=== PATIENT | male | born 1960 | race Caucasian/White ===

== ENCOUNTER 2019-08-13 14:54 | Outpatient (CLI) | payer OTHER, SELFPAY ==
[2019-08-13 16:05] LABS: Alanine Aminotransferase 25 U/L (4-50); Albumin Level 4.6 g/dL (3.5-5.1); Alkaline Phosphatase 83 U/L (38-126); Aspartate Amino Transferase 27 U/L (17-59); Bilirubin,Total 0.5 mg/dL (0.2-1.3); Blood Urea Nitrogen 24 mg/dL (9-20); Carbon Dioxide 27 mmol/L (22-30); Chloride 101 mmol/L (98-107); Estimated Glomerular Filt Rate > 60; Glucose 121 mg/dL (75-110); Potassium 4.2 mmol/L (3.4-5.0); Sodium 137 mmol/L (137-145); Uric Acid 3.9 mg/dL (3.5-8.5)
== END 2019-08-13 14:55 | disposition home or self-care (01) ==
PROVIDERS: Visit Provider Podiatrist Foot & Ankle Surgery
DX: M10.9 Gout, unspecified (principal)
CPT/HCPCS: 36415; 80053; 84550

== ENCOUNTER 2020-08-18 11:23 | Outpatient (CLI) | payer OTHER, SELFPAY ==
--- NOTE | 2020-08-18 11:32 | ECG_ITS ---
Measurements Intervals [place] Rate: 94 P: 37 MA: 179 QRS: 265 QRSD: 157 T: -11 QT: 369 QTc: 461 Interpretive Statements SINUS RHYTHM RIGHT AXIS DEVIATION RIGHT BUNDLE BRANCH BLOCK BASELINE ARTIFACT- I, II, AVR, AVL, AVF ABNORMAL ECG Electronically Signed On 08-18-2020 11:50:32 [facility] by Serge Crow D.O.
[2020-08-18 12:02] LABS: Anion Gap 7 mmol/L (8-16); Blood Urea Nitrogen 18 mg/dL (9-20); Calcium 9.2 mg/dL (8.4-10.2); Carbon Dioxide 29 mmol/L (22-30); Chloride 106 mmol/L (98-107); Estimated Glomerular Filt Rate > 60; Glucose 176 mg/dL (75-110); Potassium 4.4 mmol/L (3.4-5.0); Sodium 142 mmol/L (137-145)
== END 2020-08-18 11:24 | disposition home or self-care (01) ==
PROVIDERS: Anesthesiology; PCP Family Medicine; Visit Provider Podiatrist Foot & Ankle Surgery
DX: I10 Essential (primary) hypertension (principal); Z01.818 Encounter for other preprocedural examination; I45.10 Unspecified right bundle-branch block
CPT/HCPCS: 36415; 80048; 93005

== ENCOUNTER → 2020-08-22 02:38 | Outpatient (CLI) | payer OTHER, SELFPAY ==
[2020-08-22 22:46] LABS: SARS-CoV-2 RNA PCR Negative
== END ==
PROVIDERS: PCP Family Medicine; Visit Provider Podiatrist Foot & Ankle Surgery
DX: Z01.812 Encounter for preprocedural laboratory examination (principal); Z20.822 Contact with and (suspected) exposure to COVID-19
CPT/HCPCS: C9803; U0003; U0005

== ENCOUNTER 2020-08-25 00:52 | Day surgery (SDC) | payer OTHER, SELFPAY ==
[2020-08-17 14:23] VITALS: BMI 31.2
--- NOTE | ~2020-08-25 | XR_ITS ---
EXAMINATION: XR surgery orthopedic EXAM DATE: 08/25/2020 09:44 INDICATION: 5th metatarsal head resection left foot. TECHNIQUE: Fluoroscopy used during XR surgery orthopedic performed by Dr. Ángel Galvan JR MD. The DAP for this procedure was 0.0326 cGycm2. FINDINGS: Single image demonstrates surgical defect, osteotomy resection of the 5th metatarsal head. No side marker on the image. Correlate with procedure note. IMPRESSION: Fluoroscopy used during XR surgery orthopedic. Reviewed, dictated and finalized at location B. FRAMER
--- NOTE | 2020-08-25 07:10 | WPDHPUPDATE1 ---
History and Physical Update Update Date/Time: 08/25/20 07:10 History and Physical has been reviewed, including an updated exam of the patient. There are NO changes in the patient's condition. Risks, benefits, and alternatives have been discussed and questions answered. Patient agrees to proceed with procedure.
--- NOTE | 2020-08-25 08:05 | WPDANESEPPF ---
Anes - Initial Pre Proc Eval Procedure: Operation Date: 08/25/20 09:30 Proposed Procedures p Fifth Metatarsal Head Resection Left Foot - Ángel Galvan JR, MD Date/Time: 08/25/20 08:05 Surgeon: Ángel Galvan JR, MD Pre Op Diagnosis: tailor's bunion left foot Patient Data Age: 59 Gender: M Height: 6 ft 3 in Weight: 113.5 kg Allergies Allergy/AdvReac Type Severity Reaction Status Date / Time ciprofloxacin Allergy Severe Other Verified 08/21/20 09:08 hydrocodone AdvReac Unknown Hyperactive Verified 08/21/20 09:08 & jittery Home Medications Medication Instructions Recorded Confirmed Type metformin 500 mg tablet,extended 1,000 mg PO DAILY #180 tablet 02/11/20 08/25/20 Rx release 24hr duloxetine 60 mg capsule,delayed 60 mg PO DAILY #30 cap 02/16/20 08/25/20 Rx release dexlansoprazole 60 mg 60 mg PO DAILY #90 cap 03/13/20 08/25/20 Rx capsule,biphase delayed release blood sugar diagnostic #120 ea 04/27/20 06/22/20 Rx lisinopril 20 mg tablet 20 mg PO DAILY #90 tablet 05/03/20 08/25/20 Rx dapagliflozin 10 mg tablet 10 mg PO DAILY #90 tablet 05/05/20 08/25/20 Rx blood-glucose meter #1 ea 05/19/20 06/22/20 Rx ropinirole 1 mg tablet 2 mg PO .qhs #180 tablet 05/19/20 08/25/20 Rx blood sugar diagnostic #300 ea 06/01/20 06/22/20 Rx lancets #200 ea 06/01/20 06/22/20 Rx rosuvastatin 40 mg tablet 40 mg PO DAILY #90 tablet 06/28/20 08/25/20 Rx trazodone 100 mg PO ONCE PRN 08/17/20 08/25/20 History Patient hx anesthesia problems: none Family hx anesthesia problems: none PMFSH Past Medical History Medical History BMI 31.0-31.9,adult Chronic neck pain Depression with anxiety Essential hypertension GERD (gastroesophageal reflux disease) Hyperlipidemia PAULINO on CPAP Restless leg Tobacco abuse Type 2 diabetes mellitus without complication, with salvage determiner current use of insulin pump Family History Family History Father No problems noted. Mother No problems noted. Sibling defect Other Cerebrovascular accident Diabetes mellitus Family history of coronary artery disease Hypertension Social History Social History Smoking packs per day: 2 Smoking cigarettes per day: 40.0 Years smoked: 45 Smoking pack-years: 90.00 Tobacco type: cigarettes Alcohol intake: current Spiritual care concerns: No Anes - Eval Final PreProcedure Day of Procedure 08/25/20 08:05 Patient weight: obese Heart: regular rate and rhythm Lungs: decreased breath sounds Airway: Mallampati scale class II Neurological: alert and oriented Last oral intake: >/= 8 hours ASA classification: III Emergent: no Anesthetic plan: proceed Anesthesia type and monitoring: general GIVS and standard monitoring Informed Consent: The patient's anesthetic plan and its attendant risks and benefits were discussed with the patient/family/POA. Questions were solicited and answers provided to the satisfaction of the patient/family/POA.
[2020-08-25 08:09] LABS: Glucose Point of Care 175 (65-105)
[2020-08-25] MEDS: LACTATED RINGERS 1,000 ML 30 ML IV CONT (08:10)
[2020-08-25 08:39] VITALS: BP 130/80; PULSE 95; RESP 20; TEMP 36.5; O2SAT 98
[2020-08-25] MEDS: ceFAZolin 2 GM/D5W 50 ML 2 GM/50 ML BAG IVPB (09:10)
[2020-08-25] MEDS: BUPIVACAINE HCL 0.5% PF 30 ML VIAL INFILTRATE (09:18)
[2020-08-25] MEDS: LIDOCAINE HCL 2% PF INJ 5 ML VIAL 20 ML INFILTRATE (09:46)
--- NOTE | 2020-08-25 09:49 | PM.PROC ---
Procedure Note - Detailed Date of procedure: 08/25/20 Pre-op diagnosis: tailor's bunion left foot Post-op diagnosis: same Procedure performed: Fifth metatarsal head resection left foot Anesthesia: GLMA and local Surgeon: Ángel Galvan JR, DPM Estimated blood loss (mL): 1 Drains: No Packing: No Pathology: none sent Complications: No immediate complications Condition: stable Disposition: same day Findings: Attention was directed to the dorsal lateral aspect of the fifth metatarsal head where a 2 cm incision was made just lateral to the extensor digitorum longus tendon to the fifth digit to the shaft of the fifth metatarsal. The incision was continued deep down through the subcutaneous tissues using sharp and blunt dissection. All bleeders were cauterized as necessary.A full-length periosteal incision was made overlying the fifth metatarsal distally. A McGlamry Elevator was used to free the plantar structures to the fifth metatarsal head. Next, a sagittal bone saw was used to resect the head of the fifth metatarsal proximal at the neck of the 5th metatarsal. The fifth metatarsal was removed from the operative site and placed on the back table and discarded. No abnormalities to the head of the fifth metatarsal. Fluoroscopy was used to make sure that the resected distal fifth metatarsal was adequate. The edges were smoothed out with a bone rasp. Next, the periosteum and capsular structures overlying the 5th metatarsophalangeal joints were reapproximated with 4-0 Vicryl. Next, subcutaneous structures were reapproximated and coapted utilizing 4-0 Vicryl. Next, the skin was reapproximated and coapted utilizing 4-0 Monocryl in running subcuticular suture fashion technique. Upon completion of the procedure, the incision was dressed with Adaptic, 4 x 4's, Kerlix, and Coban. The pneumatic ankle tourniquet was then deflated and a prompt hyperemic response noted to all digits of the foot. A CAM walker boot was then applied. The patient did very well with the procedure and the anesthesia. The patient was transferred to the recovery room with vital signs stable and vascular status intact to all toes of the affected foot. Following a period of postoperative monitoring, the patient will be discharged home on the following written and oral postoperative instructions: 1. Keep the dressing clean, dry, and intact. Use a cast protector bag with showers. 2. The patient should use a CAM boot for ambulation postoperatively. 3. The patient should be on bedrest with bathroom privileges and elevate the affected foot when at rest. 4. The patient to contact Dr. Galvan for all postop care and if any problems arise. 5. Prescriptions were written for Percocet 5/325 dispensed 40 to be taken 1 p.o. q.4 to 6 hours as needed for severe pain. 6. Take one Aspirin 325mg every 24hours for two weeks post operatively.
[2020-08-25 10:00] VITALS: BP 118/89; PULSE 85; RESP 16; TEMP 36.3; O2SAT 100
[2020-08-25 10:13] LABS: Glucose Point of Care 143 (65-105)
[2020-08-25 10:30] VITALS: BP 131/85; PULSE 79; RESP 20; O2SAT 97
--- NOTE | 2020-08-25 10:39 | SUR.PHASEII ---
PT AWAKE AND ALERT. ASKING TO GO HOME. DENIES PAIN
[2020-08-25 11:00] VITALS: BP 140/90; PULSE 79; RESP 18
--- NOTE | 2020-08-25 16:25 | SUR.PHASEII ---
1045; ATTEMPTED TO PUT CAM BOOT ON. VELCRO WILL NOT GO AROUND FRONT OF FOOT DO TO DRESSING. TOES AT END OF BOOT. CALLED DR HAILE OFFICE. WILL GET A LARGER BOOT
--- NOTE | 2020-08-25 16:32 | SUR.PHASEII ---
1110; NEW LARGER CAM BOOT APPLIED. FITS BETTER. PT TAKING SMALLER BOOT WITH HIM. INSTRUCTED TO TAKE TO OFFICE VISIT. PT DENIES PAIN. STATES READY TO GO HOME. SPOUSE AT BEDSIDE.
== END 2020-08-25 11:30 | disposition home or self-care (01) ==
PROVIDERS: PCP Family Medicine; Visit Provider Podiatrist Foot & Ankle Surgery
PROC: (CPT 28104; 2020-08-25 09:30)
DX: M21.622 Bunionette of left foot (principal); I10 Essential (primary) hypertension; E78.5 Hyperlipidemia, unspecified; E11.9 Type 2 diabetes mellitus without complications; G47.33 Obstructive sleep apnea (adult) (pediatric); K21.9 Gastro-esophageal reflux disease without esophagitis; G25.81 Restless legs syndrome; F41.8 Other specified anxiety disorders; Z79.84 Long term (current) use of oral hypoglycemic drugs; E66.9 Obesity, unspecified; Z68.30 Body mass index [BMI] 30.0-30.9, adult; F17.210 Nicotine dependence, cigarettes, uncomplicated
CPT/HCPCS: 28113; 36415; 80048; 82948; 87804; 93005; A9270; C9803; J0690; J2250; J2405; J2704; J3010; J7120; U0003; U0005

== ENCOUNTER → 2020-08-25 06:57 | Outpatient (CLI) | payer OTHER, SELFPAY ==
[2020-08-25 11:36] LABS: Influenza Control Positive
== END ==
PROVIDERS: PCP Family Medicine; Visit Provider Physician Assistant Medical
DX: R68.89 Other general symptoms and signs (principal)
CPT/HCPCS: 87804

== ENCOUNTER → 2020-11-17 02:47 | Outpatient (CLI) | payer OTHER, SELFPAY ==
[2020-11-17 18:15] LABS: SARS-CoV-2 RNA PCR Negative
== END ==
PROVIDERS: PCP Family Medicine; Visit Provider Internal Medicine Gastroenterology
DX: Z01.812 Encounter for preprocedural laboratory examination (principal); Z20.822 Contact with and (suspected) exposure to COVID-19
CPT/HCPCS: C9803; U0003; U0005

== ENCOUNTER → 2020-12-01 04:41 | Outpatient (CLI) | payer OTHER, SELFPAY ==
[2020-12-01 18:47] LABS: SARS-CoV-2 RNA PCR Negative
== END ==
PROVIDERS: PCP Family Medicine; Visit Provider Internal Medicine Gastroenterology
DX: Z01.812 Encounter for preprocedural laboratory examination (principal); Z20.822 Contact with and (suspected) exposure to COVID-19
CPT/HCPCS: C9803; U0003; U0005

== ENCOUNTER 2020-12-04 01:13 | Day surgery (SDC) | payer OTHER, SELFPAY ==
[2020-11-07 16:13] VITALS: BMI 30.7
[2020-12-04 09:14] VITALS: BP 144/95; PULSE 97; RESP 18; TEMP 36; O2SAT 99
[2020-12-04] MEDS: LACTATED RINGERS 1,000 ML 150 ML IV CONT (09:27)
[2020-12-04 09:33] LABS: Glucose Point of Care 175 mg/dl (65-105)
--- NOTE | 2020-12-04 09:53 | WPDGICN ---
Assessment and Plan Assessment and plan (1) GERD (gastroesophageal reflux disease): Code(s): K21.9 - Gastro-esophageal reflux disease without esophagitis Status: Acute (2) Acrroll's esophagus: Code(s): K22.70 - Carroll's esophagus without dysplasia Status: Acute Assessment and Plan: Patient with an underlying history of Carroll's esophagus. Last endoscopy is reported to be 4 years ago surveillance exam will be performed at this time. (3) Type 2 diabetes mellitus without complication, with longterm current use of insulin pump: Code(s): E11.9 - Type 2 diabetes mellitus without complications; Z96.41 - Presence of insulin pump (external) (internal) Status: Acute Assessment and Plan: Patient with a history of diabetes raises the question of underlying gastroparesis. This will be evaluated at endoscopy. (4) Nausea and vomiting in adult: Code(s): R11.2 - Nausea with vomiting, unspecified Status: Acute Assessment and Plan: Patient with ongoing nausea vomiting predominantly in the morning. Plan is to evaluate more thoroughly with an EGD. Patient has underlying history of Carroll's esophagus is felt to have acid reflux disease. He has been maintained on PPI therapy for some time. Further recommendations will be given after endoscopy. GI Consult Note Consult date/time: 12/04/20 09:53 HPI: Jesus Woods is a 60 year old male Presents for EGD. Patient has complaints of nausea and vomiting typically in the morning. Patient was found to have Carroll's esophagus by endoscopy in [place] 4-5 years ago. Patient previously maintained on Dexilant. His recent medications include pantoprazole. Patient continues to experience nausea despite new medication. He presents today for EGD. Patient denies any weight loss or bleeding. Family history is noncontributory. He denies heartburn. Review of Systems Review of Systems: All systems reviewed & are unremarkable except as noted in HPI and below PMFSH Past Medical History Medical History (Updated 12/04/20 @ 09:55 by Ricardo Apple MD) BMI 30.0-30.9,adult BMI 31.0-31.9,adult Chronic neck pain Depression with anxiety Essential hypertension GERD (gastroesophageal reflux disease) Hyperlipidemia PAULINO on CPAP Restless leg Tobacco abuse Type 2 diabetes mellitus without complication, with longterm current use of insulin pump Family History Family History Father No problems noted. Mother No problems noted. Sibling defect Other Cerebrovascular accident Diabetes mellitus Family history of coronary artery disease Hypertension Social History Social History Smoking packs per day: 2 Smoking cigarettes per day: 40.0 Years smoked: 45 Smoking pack-years: 90.00 Tobacco type: cigarettes Alcohol intake: former Alcohol use details: occasional, approximately once monthly Substance use: never Substance use type: does not use Living arrangements: alone Additional living arrangements comments: brother Garry currently staying with him Gender identity (if verbalized by the patient): Male Spiritual care concerns: No Meds Home Medications and Allergies Home Medications Medication Instructions Recorded Confirmed Type blood sugar diagnostic #120 ea 04/27/20 11/21/20 Rx dapagliflozin 10 mg tablet 10 mg PO DAILY #90 tablet 05/05/20 11/21/20 Rx blood-glucose meter #1 ea 05/19/20 11/21/20 Rx ropinirole 1 mg tablet 2 mg PO .qhs #180 tablet 05/19/20 11/21/20 Rx blood sugar diagnostic #300 ea 06/01/20 11/21/20 Rx lancets #200 ea 06/01/20 11/21/20 Rx trazodone 100 mg PO ONCE PRN 08/17/20 11/21/20 History duloxetine 60 mg capsule,delayed 60 mg PO DAILY #30 cap 08/29/20 11/21/20 Rx release metformin 500 mg tablet,extended 2,000 m
--- NOTE | 2020-12-04 10:26 | WPDANESEPPF ---
Anes - Initial Pre Proc Eval Procedure: Operation Date: 12/04/20 10:00 Proposed Procedures p Esophagogastroduodenoscopy - Ricardo Apple MD Date/Time: 12/04/20 10:26 Surgeon: Ricardo Apple MD Pre Op Diagnosis: vilchis's esophagus, gerd Patient Data Age: 60 Gender: M Height: 1.91 m Weight: 113.3 kg Last Vital Signs Temp 96.8 F L 12/04/20 09:14 Pulse 97 12/04/20 09:14 Resp 18 12/04/20 09:14 BP 144/95 H 12/04/20 09:14 Pulse Ox 99 12/04/20 09:14 Allergies Allergy/AdvReac Type Severity Reaction Status Date / Time ciprofloxacin Allergy Severe Other Verified 12/04/20 09:11 hydrocodone AdvReac Unknown Hyperactive Verified 12/04/20 09:11 & jittery Home Medications Medication Instructions Recorded Confirmed Type blood sugar diagnostic #120 ea 04/27/20 11/21/20 Rx dapagliflozin 10 mg tablet 10 mg PO DAILY #90 tablet 05/05/20 11/21/20 Rx blood-glucose meter #1 ea 05/19/20 11/21/20 Rx ropinirole 1 mg tablet 2 mg PO .qhs #180 tablet 05/19/20 11/21/20 Rx blood sugar diagnostic #300 ea 06/01/20 11/21/20 Rx lancets #200 ea 06/01/20 11/21/20 Rx trazodone 100 mg PO ONCE PRN 08/17/20 11/21/20 History duloxetine 60 mg capsule,delayed 60 mg PO DAILY #30 cap 08/29/20 11/21/20 Rx release metformin 500 mg tablet,extended 2,000 mg PO DAILY #360 tablet 08/30/20 11/21/20 Rx release 24hr rosuvastatin 40 mg tablet 40 mg PO DAILY #90 tablet 10/05/20 11/21/20 Rx pantoprazole 40 mg tablet,delayed 40 mg PO BID #180 tablet 10/06/20 11/21/20 Rx release lisinopril 20 mg tablet 20 mg PO DAILY #90 tablet 11/08/20 11/21/20 Rx Laboratory Tests 12/04/20 09:22 POC Capillary Glucose 175 mg/dl H mg/dl (65-105) Patient hx anesthesia problems: none Family hx anesthesia problems: none [facility] Past Medical History Medical History (Updated 12/04/20 @ 09:55 by Ricardo Apple MD) BMI 30.0-30.9,adult BMI 31.0-31.9,adult Chronic neck pain Depression with anxiety Essential hypertension GERD (gastroesophageal reflux disease) Hyperlipidemia PAULINO on CPAP Restless leg Tobacco abuse Type 2 diabetes mellitus without complication, 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 Mother No problems noted. Sibling defect Other Cerebrovascular accident Diabetes mellitus Family history of coronary artery disease Hypertension Social History Social History Smoking packs per day: 2 Smoking cigarettes per day: 40.0 Years smoked: 45 Smoking pack-years: 90.00 Tobacco type: cigarettes Alcohol intake: former Alcohol use details: occasional, approximately once monthly Substance use: never Substance use type: does not use Living arrangements: alone Additional living arrangements comments: brother Garry currently staying with him Gender identity (if verbalized by the patient): Male Spiritual care concerns: No Anes - Eval Final PreProcedure Day of Procedure 12/04/20 10:26 Patient weight: obese Heart: regular rate and rhythm Lungs: clear to auscultation Airway: Mallampati scale Neurological: alert and oriented Last oral intake: >/= 8 hours ASA classification: III Emergent: no Anesthetic plan: proceed Anesthesia type and monitoring: general GIVS and standard monitoring Informed Consent: The patient's anesthetic plan and its attendant risks and benefits were discussed with the patient/family/POA. Questions were solicited and answers provided to the satisfaction of the patient/family/POA.
[2020-12-04 10:40] VITALS: BP 109/77; PULSE 81; RESP 18; O2SAT 95
[2020-12-04 10:50] VITALS: BP 107/77; PULSE 91; RESP 18; O2SAT 96
[2020-12-04 10:59] VITALS: BP 109/80; PULSE 84; RESP 18; O2SAT 96
== END 2020-12-04 11:09 | disposition home or self-care (01) ==
PROVIDERS: PCP Family Medicine; Visit Provider Internal Medicine Gastroenterology
PROC: 0DJ08ZZ Inspection of Upper Intestinal Tract, Via Natural or Artificial Opening Endoscopic (ICD-10-PCS; CPT 43235; principal; 2020-12-04 10:00)
DX: K21.00 Gastro-esophageal reflux disease with esophagitis, without bleeding (principal); K22.70 Barrett's esophagus without dysplasia; R11.2 Nausea with vomiting, unspecified; E11.9 Type 2 diabetes mellitus without complications; I10 Essential (primary) hypertension; F41.8 Other specified anxiety disorders; G47.33 Obstructive sleep apnea (adult) (pediatric); E78.5 Hyperlipidemia, unspecified; G25.81 Restless legs syndrome; Z79.4 Long term (current) use of insulin; Z96.41 Presence of insulin pump (external) (internal); F17.210 Nicotine dependence, cigarettes, uncomplicated; Z79.84 Long term (current) use of oral hypoglycemic drugs
CPT/HCPCS: 43239; 82948; 88305; 88313; C9803; J1100; J2405; J2704; J7120; U0003; U0005

== ENCOUNTER 2020-12-27 08:56 | Outpatient (CLI) | payer OTHER, SELFPAY ==
[2020-12-27 09:22] LABS: Hematocrit 51.6 % (42.0-52.0); Hemoglobin 17.7 g/dL (14.0-18.0); Mean Corpuscular HGB Conc 34.3 g/dl (32-36); Mean Corpuscular Hemoglobin 31.8 pg (26-34); Mean Corpuscular Volume 92.6 fl (80-100); Platelet Count Result 223 k/mm3 (150-375); Red Blood Count 5.57 M/mm3 (4.6-6.20); Red Cell Distribution Width 12.5 % (11.5-14.5); White Blood Count 6.7 K/mm3 (4.5-10.0)
[2020-12-27 09:56] LABS: Alanine Aminotransferase 27 U/L (4-50); Albumin Level 4.7 g/dL (3.5-5.1); Alkaline Phosphatase 59 U/L (38-126); Anion Gap 9 mmol/L (8-16); Aspartate Amino Transferase 27 U/L (17-59); Bilirubin,Total 0.9 mg/dL (0.2-1.3); Blood Urea Nitrogen 16 mg/dL (9-20); Calcium 9.7 mg/dL (8.4-10.2); Carbon Dioxide 28 mmol/L (22-30); Chloride 99 mmol/L (98-107); Cholesterol 105 mg/dL (0-200); Estimated Glomerular Filt Rate > 60; Glucose 129 mg/dL (75-110); HDL Direct 36 mg/dL; Magnesium 1.9 mg/dL (1.6-2.3); Sodium 136 mmol/L (137-145); Triglycerides 141 mg/dL (<150)
[2020-12-27 09:59] LABS: LDL Cholesterol Direct 38 mg/dL
[2020-12-27 10:19] LABS: Prostate Specific Antigen 1.3 ng/mL (< OR = 4.0); Thyroid Stimulating Hormone 0.445 uIU/mL (0.465-4.680)
[2020-12-27 12:41] LABS: Creatinine Urine 104.4 mg/dL
[2020-12-27 12:42] LABS: MALB Creatinine Ratio 12.9 mg/g (0-30); Microalbumin Urine Random 13.5 mg/L (0-16.7)
[2020-12-27 12:49] LABS: Vitamin D 25 Hydroxy 45.5 ng/mL
[2020-12-31 00:15] LABS: HIV DNA PCR (Qual) Not Detected (Not Detected)
[2021-01-02 14:23] LABS: Testosterone Free 49.8 pg/mL (35.0-155.0); Testosterone Total 353 ng/dL (250-1100)
== END 2020-12-27 08:57 | disposition home or self-care (01) ==
LOC: ANHLAB 09:00
PROVIDERS: PCP Family Medicine; Visit Provider Physician Assistant Medical
DX: Z12.5 Encounter for screening for malignant neoplasm of prostate (principal); E11.9 Type 2 diabetes mellitus without complications; Z96.41 Presence of insulin pump (external) (internal); E07.9 Disorder of thyroid, unspecified; Z11.3 Encounter for screening for infections with a predominantly sexual mode of transmission; G25.81 Restless legs syndrome; R53.83 Other fatigue; E55.9 Vitamin D deficiency, unspecified; I10 Essential (primary) hypertension; E78.5 Hyperlipidemia, unspecified
CPT/HCPCS: 36415; 80053; 80061; 82043; 82306; 82607; 83735; 84153; 84402; 84403; 84443; 85027; 87535; G0103

== ENCOUNTER 2021-02-13 10:51 | Outpatient (CLI) | payer OTHER, SELFPAY ==
[2021-02-13 11:26] LABS: Anion Gap 10 mmol/L (8-16); Blood Urea Nitrogen 22 mg/dL (9-20); Carbon Dioxide 25 mmol/L (22-30); Chloride 97 mmol/L (98-107); Estimated Glomerular Filt Rate > 60; Glucose 202 mg/dL (65-110); Potassium 3.7 mmol/L (3.4-5.0); Sodium 132 mmol/L (137-145)
[2021-02-13 11:56] LABS: Thyroid Stimulating Hormone 0.888 uIU/mL (0.465-4.680)
== END 2021-02-13 10:52 | disposition home or self-care (01) ==
LOC: ANHLAB 10:54
PROVIDERS: PCP Family Medicine; Visit Provider Physician Assistant Medical
DX: R79.89 Other specified abnormal findings of blood chemistry (principal); E87.1 Hypo-osmolality and hyponatremia
CPT/HCPCS: 36415; 80048; 84443

== ENCOUNTER 2021-02-20 09:07 | Outpatient (RCR) | payer OTHER, SELFPAY | END 2021-04-20 12:40 | disposition home or self-care (01) | LOC: ANHDMC 09:07 | PROVIDERS: PCP Family Medicine; Visit Provider Family Medicine | DX: E11.9 Type 2 diabetes mellitus without complications (principal); Z71.89 Other specified counseling | CPT/HCPCS: G0108 ==

== ENCOUNTER 2021-03-02 11:23 | Outpatient (CLI) | payer OTHER, SELFPAY ==
[2021-03-02 12:29] LABS: Anion Gap 11 mmol/L (8-16); Blood Urea Nitrogen 21 mg/dL (9-20); Calcium 9.2 mg/dL (8.4-10.2); Carbon Dioxide 24 mmol/L (22-30); Chloride 104 mmol/L (98-107); Estimated Glomerular Filt Rate > 60; Glucose 292 mg/dL (65-110); Potassium 4.1 mmol/L (3.4-5.0); Sodium 139 mmol/L (137-145)
== END 2021-03-02 11:24 | disposition home or self-care (01) ==
LOC: ANHLAB 11:25
PROVIDERS: PCP Family Medicine; Visit Provider Physician Assistant Medical
DX: E87.1 Hypo-osmolality and hyponatremia (principal)
CPT/HCPCS: 36415; 80048

== ENCOUNTER 2021-03-09 12:56 | Outpatient (CLI) | payer OTHER, SELFPAY ==
[2021-03-09 14:09] LABS: Free T4 Free Thyroxine 1.52 ng/mL (0.78-2.19)
[2021-03-09 14:18] LABS: Thyroid Stimulating Hormone 0.571 uIU/mL (0.465-4.680)
== END 2021-03-09 12:57 | disposition home or self-care (01) ==
LOC: ANHLAB 12:57
PROVIDERS: PCP Family Medicine; Visit Provider Physician Assistant Medical
DX: R79.89 Other specified abnormal findings of blood chemistry (principal)
CPT/HCPCS: 36415; 84439; 84443

== ENCOUNTER → 2021-05-19 10:12 | Outpatient (CLI) | payer OTHER, SELFPAY ==
--- NOTE | ~2021-05-19 | US_ITS ---
EXAMINATION: US abdomen complete DATE: 05/19/2021 10:47 INDICATION: Nausea and vomiting. Abdominal distention. TECHNIQUE: Multiple grayscale and Doppler ultrasound images of the abdomen were obtained. COMPARISON: Chest CT 11/25/2017 FINDINGS: The pancreas is obscured by bowel gas. Abdominal aorta is normal in caliber. Inferior vena cava is obscured by bowel gas. The liver is normal without focal lesion. There is normal flow in main portal vein. The gallbladder is normal in size and contains a 7 mm polyp. No gallbladder wall thicke raphael or sonographic Agrawal sign. The common duct is normal and measures 5 mm. The kidneys are normal in size. The spleen is normal in size. IMPRESSION: 1. 7 mm gallbladder polyp, which may be a benign polyp, adenoma, or less likely a small cancer. Gallb ladder ultrasound is recommended in one year. Reviewed, dictated and finalized at location A. LE [employer]P DEVELOPER IMPRESSION: 1. 7 mm gallbladder polyp, which may be a benign polyp, adenoma, or less likely a small cancer. Gallbladder ultrasound is recommended in one year.
== END ==
PROVIDERS: PCP Physician Assistant Medical; Visit Provider Nurse Practitioner Family
DX: R11.2 Nausea with vomiting, unspecified (principal); K82.4 Cholesterolosis of gallbladder
CPT/HCPCS: 76700

== ENCOUNTER 2021-10-18 16:05 | Outpatient (CLI) | payer OTHER, SELFPAY ==
--- NOTE | ~2021-10-18 | CT_ITS ---
EXAMINATION: CT abdomen pelvis w con DATE: 10/18/2021 16:48 INDICATION: Nausea and vomiting. TECHNIQUE: Computed tomography (CT) of the abdomen and pelvis was performed with 100 mL Omnipaque 350 intravenous contrast. Automated exposure control and iterative reconstruction technique were employe d. The dose-length product was 1048.36 mGy-cm. COMPARISON: CT abdomen and pelvis 03/28/2014 FINDINGS: The visualized portions of the lung bases demonstrate calcified right lower lobe nodules an d calcified right hilar lymph nodes, consistent with old granulomatous disease. No pleural effusion. The heart size is normal. No pericardial effusion. The liver is normal. Calcifications in the spleen are consistent with old granulomatous disease. The gallbladder, pancreas, adrenal glands, and right k idney are normal. There are cysts in left kidney measuring up to 8 mm. The prostate is mildly enlarge d. There are no dilated loops of bowel. The appendix is not visualized. There are no pathologically e nlarged lymph nodes. There is no free intraperitoneal fluid. There is a right inguinal hernia contain ing fat. There is mild thoracolumbar spondylosis. IMPRESSION: 1. Right inguinal hernia containing fat. Reviewed, dictated and finalized at location A.
[2021-10-18 16:36] LABS: Estimated Glomerular Filt Rate > 60
== END 2021-10-18 16:06 | disposition home or self-care (01) ==
PROVIDERS: PCP Physician Assistant Medical; Visit Provider Physician Assistant Medical
DX: R11.2 Nausea with vomiting, unspecified (principal); K52.9 Noninfective gastroenteritis and colitis, unspecified; K40.90 Unilateral inguinal hernia, without obstruction or gangrene, not specified as recurrent
CPT/HCPCS: 74177; Q9967

== ENCOUNTER 2022-04-15 08:45 | Outpatient (CLI) | payer OTHER, SELFPAY ==
--- NOTE | 2022-04-15 11:15 | NEURO_ITS ---
Impression: # Complains of numbness of feet. # Axonal asymmetrical neuropathy, left more than right with polyphasic responses proximally. # Needle/EMG exam abnormal with neurogenic changes. # Clinical correlation recommended. Motor Nerve Conduction Lower Extremities Peroneal Nerve Conduction Velocity (m/sec) Terminal Latency (msec) Response Voltage(mV) Popliteal space-Ankle Ankle Extensor Dig Brevis Popliteal space Ankle Right 43 5.2 2 2 Left NR NR NR NR Tibial Nerve Conduction Velocity (m/sec) Terminal Latency (msec) Response Voltage(mV) Popliteal space-Ankle Ankle-Extensor Dig Brevis Popliteal space Ankle Right 41 5.7 2 4 Left 41 5.8 1 2 F-waves Peroneal Nerve (ms) Tibial Nerve (ms) Right 60.1 61.4 Left NR Dispersed Response Sensory Nerve Conduction Lower Extremities Sural Nerve Stimulation Terminal Latency (msec) Ankle Response Voltage (uV) Ankle Response Velocity (m/sec) Right 3.7 15 43 Left 3.8 5 42 Superficial Peroneal Nerve Stimulation Terminal Latency (msec) Ankle Response Voltage (uV) Ankle Response Velocity (m/sec) Right 3.8 10 42 Left Poor Response Poor Response Poor Response Left Right Muscles Examined Fibrillation Fasciculation Scarcity Voltage Duration Left Right Left Right Left Right Left Right Left Right X X Ant Tibialis ++ ? X X Gastroc + + X X Fibularis Long + + X X Flex Dig Long X X Ext Dig Brev ++ ? Abd Hallucis X X Quadriceps + + Paraspinals MTDD
== END 2022-04-15 08:46 | disposition home or self-care (01) ==
PROVIDERS: PCP Family Medicine; Visit Provider Physician Assistant Medical
DX: G25.81 Restless legs syndrome (principal); R94.131 Abnormal electromyogram [EMG]
CPT/HCPCS: 95886; 95910

== ENCOUNTER 2022-08-16 00:43 | Day surgery (SDC) | payer OTHER, SELFPAY ==
[2022-08-05 15:18] VITALS: BMI 31.8
--- NOTE | 2022-08-05 15:24 | PC.NURSE ---
Report to the Outpatient Waiting Room, entrance under the green pavilion located off [address], at time 6:15 on date 08/16/22. Planned Procedure Time: 8:15. Time changes happen often and if your time is changed the preop area will call you the afternoon before. - You and your visitor will be asked to self-screen and do not enter if you have any COVID symptoms. - Only one visitor is requested with a max of two and NO children visitors are allowed at this time. - The patient visitor may be requested to leave or wait in car when not with patient due to distancing restrictions. - A mask is optional within the hospital at this time. Patients may have clear liquids (water, carbonated beverages, clear teas, apple juice) until 3 hours prior to surgery with a maximum of 20 ounces. - No food from midnight until time of surgery Take the following medications with a SIP of water the morning of surgery: NONE DO NOT STOP ANY OF YOUR OTHER PRESCRIPTION MEDICATIONS PRIOR TO SURGERY EXCEPT THE FOLLOWING Medications to discontinue per physician: N/A Date to take last dose: N/A Please no make-up, nail gibraltarian, hairspray, perfume, deodorant, or body powder the day of surgery. No jewelry (including any body piercings) or valuables the day of surgery, leave them at home. Please take a shower or bath the night before, or the morning of, surgery with an antibacterial soap. Wear comfortable, loose fitting clothing. - Jewelry must be removed prior to entering the operating room. Rings and piercings that are not removed may be cut off. - The hospital will not accept responsibility for valuables. - Please leave all valuables, including medications, at home the day of surgery. If you are going home after surgery, a licensed carrier driver must drive you home. - NO public transportation without another adult if you receive anesthesia. - We recommend that an adult stay with you for 24 hours following discharge. - We also recommend that you do not drive, make important decision, drink alcoholic beverages, or take any drugs that were not prescribed by your health care provider for at least 24 hours after your discharge time. Follow any additional instructions given to you from your surgeon. If you or anyone in your household have experienced Covid symptoms in the past week, please notify your surgeon or the nurse liaison at the phone number below for possible testing. Telephone instructions given to PT - JP ALEXIS and asked if any additional questions and then verbalized understanding. Patient advised to call surgeon office or pre surgery nurse liaison [phone] if any additional questions.
[2022-08-16] VITALS (8 sets, daily range): BP systolic 140–159; BP diastolic 88–108; PULSE 77–92; RESP 12–16; TEMP 36.4–36.6; O2SAT 92–99
--- NOTE | ~2022-08-16 | XR_ITS ---
XR surgery orthopedic 08/16/2022 10:01 Indication: Right foot arthrodesis TECHNIQUE: Fluoroscopy used during right foot arthrodesis performed by [Ángel Galvan JR MD] on 08/16/2022. 14 seconds of fluoroscopy time with 3 images captured. FINDINGS: Correlate with procedure note. IMPRESSION: Fluoroscopy used during right foot arthrodesis at the first metatarsophalangeal joint.. Reviewed, dictated and finalized at location B. ABLE TRACK CREW CHIEF IMPRESSION: Fluoroscopy used during right foot arthrodesis at the first metatar sophalangeal joint..
[2022-08-16 07:12] LABS: Glucose Point of Care 172 mg/dl (65-105)
--- NOTE | 2022-08-16 07:23 | WPDHPUPDATE1 ---
History and Physical Update Update Date/Time: 08/16/22 07:23 History and Physical has been reviewed, including an updated exam of the patient. There are NO changes in the patient's condition. Risks, benefits, and alternatives have been discussed and questions answered. Patient agrees to proceed with procedure.
--- NOTE | 2022-08-16 07:51 | WPDANESEPPF ---
Anes - Initial Pre Proc Eval Procedure: Operation Date: 08/16/22 08:30 Proposed Procedures p Arthrodesis First Metatarsophalangeal Joint Right Foot - Ángel Galvan JR, MD s Fifth Metatarsal Head Resection Right Foot - Ángel Galvan JR, MD Date/Time: 08/16/22 07:51 Surgeon: Ángel Galvan JR, MD Pre Op Diagnosis: arthritis first mpj right foot, tailors bunion Patient Data Age: 61 Gender: M Height: 1.91 m Weight: 117.7 kg Last Vital Signs Temp 36.4 C L 08/16/22 06:05 Pulse 91 08/16/22 06:05 Resp 16 08/16/22 06:05 BP 141/92 H 08/16/22 06:05 Pulse Ox 97 08/16/22 06:05 O2 Del Method Room Air 08/16/22 06:05 Allergies Allergy/AdvReac Type Severity Reaction Status Date / Time ciprofloxacin Allergy Severe Other Verified 08/16/22 06:00 hydrocodone AdvReac Unknown Hyperactive Verified 08/16/22 06:00 & jittery rosuvastatin [From Crestor] AdvReac myalgias Verified 08/16/22 06:00 Home Medications Medication Instructions Recorded Confirmed Type lancets #200 ea 06/01/20 08/16/22 Rx duloxetine 60 mg capsule,delayed 60 mg PO DAILY #90 caps 09/06/21 08/16/22 Rx release (Cymbalta) dapagliflozin 10 mg tablet 10 mg PO DAILY #90 tabs 11/23/21 08/16/22 Rx (Farxiga) diphenoxylate-atropine 2.5 1 tablet PO TID #90 tabs 11/28/21 08/16/22 Rx mg-0.025 mg tablet (Lomotil) ondansetron HCl 4 mg tablet 4 mg PO Q8H PRN nausea and 11/28/21 08/16/22 Rx vomiting #30 tabs pantoprazole 40 mg tablet,delayed 40 mg PO BID #180 tabs 02/06/22 08/16/22 Rx release lisinopril 20 mg tablet 20 mg PO DAILY #90 tabs 02/19/22 08/16/22 Rx blood sugar diagnostic (Blood #120 ea 04/02/22 08/16/22 Rx Glucose Test strips) insulin degludec 100 unit/mL (3 25 unit (0.25 mL) subcut QHS #15 mL 07/05/22 08/16/22 Rx mL) subcutaneous pen (Tresiba FlexTouch U-100 insulin) sitagliptin phosphate 50 mg tablet 50 mg PO DAILY #90 tabs 07/05/22 08/16/22 Rx (Januvia) ropinirole 3 mg tablet 3 mg PO QHS #90 tabs 07/12/22 08/16/22 Rx Laboratory Tests 08/16/22 07:11 POC Capillary Glucose 172 mg/dl H mg/dl (65-105) Patient hx anesthesia problems: none Family hx anesthesia problems: none Results Review: All pre-operative results and documents have been reviewed as part of the pre-operative evaluation. [facility] Past Medical History Medical History BMI 29.0-29.9,adult BMI 30.0-30.9,adult BMI 31.0-31.9,adult BMI greater than 30 Chronic neck pain Depression with anxiety Essential hypertension GERD (gastroesophageal reflux disease) Hyperlipidemia PAULINO on CPAP Restless leg Tobacco abuse Family History Family History Father Mother Diabetes mellitus Sibling defect Other Cerebrovascular accident Family history of coronary artery disease Hypertension Social History Social History Smoking packs per day: 2.5 Smoking cigarettes per day: 50.0 Years smoked: 40 Smoking pack-years: 100.00 Smoking status: Former smoker Tobacco type: cigarettes Second hand tobacco smoke exposure: Yes Smoking end date: 07/29/22 Alcohol intake: never Alcohol use details: occasional, approximately once monthly Substance use: never Substance use type: does not use Lack of Transportation: No Lack of Food: Never True Current Housing: I Have Housing Concerned About Future Housing: No Difficulty Paying Gas/Electric Bills: No Difficulty Paying for Meds: No Currently Unemployed: No Education: Associate Degree Difficulty w/ Childcare or Family Care: No Living arrangements: with family Additional living arrangements comments: BROTHER Occupation/Education: occupation 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[employer] Gender id
[2022-08-16] MEDS: LACTATED RINGERS 1,000 ML 30 ML IV CONT (08:12)
--- NOTE | 2022-08-16 08:31 | WPDANESPNB ---
Anes - Peripheral Nerve Block Date/Time: 08/16/22 08:31 I have discussed with the patient/family/POA the placement of a peripheral nerve block for post-operative pain management, including associated risks, benefits, complications, and side effects. Alternative methods of post-operative analgesia were detailed. Questions were solicited and answers provided to the satisfaction of the patient/family/POA. Time-Out: A pre-procedural Time-Out was completed immediately before starting the procedure and confirmed: Patient Identification, Site, Procedure, Patient Position and the Availability of Requisite Equipment. Clinical Indications: Acute post-operative pain management requested by the operative surgeon. Nerve Block Insertion Note Anes-nerve block: posterior fossa sciatic right and other (Saphenous right) Patient position: supine Skin prep: chlorhexidine Needle: 22 gauge, stimulating, insulated echogenic needle. Needle length: 80 mm Technique: nerve stimulation lost at (mA) (0.3) Injectate: bupivacaine 0.5% with epi 5 mcg/ml (20/10ml no epi) Observations: tolerated well Complications: none Procedure start time:: 822 Procedure end time:: 829
[2022-08-16] MEDS: ceFAZolin 2 GM/D5W 50 ML 2 GM/50 ML BAG IVPB (08:35)
[2022-08-16 10:13] LABS: Glucose Point of Care 185 mg/dl (65-105)
[2022-08-16] MEDS: ONDANSETRON INJ 4 MG/2 ML VIAL IV PUSH (10:15)
--- NOTE | 2022-08-16 10:29 | W.PM.PROC2 ---
Procedure Note - Detailed Date of Procedure 08/16/22 Pre-op Diagnosis 1. Arthritis first metatarsal phalangeal joint right foot 2. Tailor's bunion deformity right foot Post-op Diagnosis Same Procedure Performed 1. Arthrodesis of the first metatarsal phalangeal joint right foot 2. Fifth metatarsal head resection right foot Surgeon Ángel Galvan JR, DPM Anesthesia General and Local Indications Painful right forefoot Findings Severe arthrosis to the first metatarsal phalangeal joint right foot Description of Procedure PROCEDURE IN DETAIL: Under mild sedation, the patient was brought into the operating room, placed on the operating table in supine position. A pneumatic ankle tourniquet was placed about the patient's ipsilateral ankle. Following general LMA, a local anesthetic block was obtained about the foot and ankle utilizing 20 cc of Exparel. The foot was then scrubbed, prepped, and draped in the usual aseptic manner. An Esmarch bandage was then used to exsanguinate the patient's foot and the pneumatic ankle tourniquet was then inflated. Surgery began in the following manner: Attention was directed to the dorsal aspect of the 1st metatarsophalangeal joint where there was a large subcutaneous prominence noted along the dorsomedial aspect of the joint. The incision was made starting along the central shaft of the 1st metatarsal and extending just proximal to the interphalangeal joint of the hallux. The incision was continued deep down through the subcutaneous tissues using sharp and blunt dissection. All bleeders were cauterized as necessary. At this point, the dissection was continued down to the level of the periosteum and capsular structures overlying the 1st metatarsophalangeal joint. A full length periosteum and capsular incision was made just medial to the extensor hallucis longus tendon. The periosteum and capsular structures were freed from the base of the proximal phalanx as well as the distal 1st metatarsal. At this point, the 1st metatarsophalangeal joint was identified. There was almost complete loss of articular cartilage to the head of the 1st metatarsal as well as the base of the proximal phalanx. There was significant broadening and hypertrophy of the 1st metatarsophalangeal joint. Utilizing a sagittal bone saw, the hypertrophied 1st metatarsal was resected dorsally, medially, and laterally. A power bur was used to make sure that there were no rough edges and also to further debride the hypertrophic 1st metatarsal. Next, a rongeur was used to resect all hypertrophic base of the proximal phalanx. At this point, the reamer system for the The sm[employer] Prize[employer] system was used to denude the degenerative cartilage from the head of the 1st metatarsal as well as the base of the proximal phalanx. The cartilage and subchondral bone were fully debrided utilizing the reamer system until healthy bleeding bone was noted. Next, a 2-0 drill bit was used to further fenestrate the head of the 1st metatarsal as well as the base of the proximal phalanx in order to allow fusion across the 1st metatarsophalangeal joint. Next, a 0.045 inch K-wire was driven from the medial aspect of the base of the proximal phalanx into the head of the 1st metatarsal in order to serve as temporary fixation. A large steel plate was used to make sure that the hallux was in a rectus position both in the sagittal plane as well as the frontal and transverse plane. Excellent position of the hallux was noted. Next, a CrossCHECK plate was placed atop the 1st metatarsophalangeal joint held in position with Meldrim wires. Utilizing standard principles and techniques, the 2 distal drill holes were drilled and two 3.5mm mm fully-threaded locking screws were driven from dorsal to plantar holding the distal aspect of the plate intact. At this point, a 3.5mm lag screw was driven from dorsal distal to proximal plantar across the 1st metatarsophalangeal joint thro
[2022-08-16] MEDS: SCOPOLAMINE 1.5 MG PATCH TRANSDERM (10:37)
[2022-08-16] MEDS: diphenhydrAMINE HCl INJ 50 MG/ML VIAL 25 MG IV PUSH (10:37)
--- NOTE | 2022-08-16 10:48 | SUR.PHASEI ---
1045: Simple mask removed.
[2022-08-16] MEDS: fentaNYL CITRATE INJ (*CRX) 100 MCG/2 ML VIAL 25 MCG IV PUSH (11:34)
== END 2022-08-16 11:50 | disposition home or self-care (01) ==
PROVIDERS: PCP Family Medicine; Visit Provider Podiatrist Foot & Ankle Surgery
PROC: (CPT 28750; principal; 2022-08-16 08:30)
PROC: (CPT 28104; 2022-08-16 08:30)
DX: M19.071 Primary osteoarthritis, right ankle and foot (principal); M21.621 Bunionette of right foot; G89.18 Other acute postprocedural pain; I10 Essential (primary) hypertension; E78.5 Hyperlipidemia, unspecified; G47.33 Obstructive sleep apnea (adult) (pediatric); G25.81 Restless legs syndrome; F41.8 Other specified anxiety disorders; K21.9 Gastro-esophageal reflux disease without esophagitis; Z87.891 Personal history of nicotine dependence; E66.9 Obesity, unspecified; Z68.32 Body mass index [BMI] 32.0-32.9, adult; Z79.4 Long term (current) use of insulin; Z79.84 Long term (current) use of oral hypoglycemic drugs
CPT/HCPCS: 28750; 28113; 64450; 64445; 82948; 99199; A9270; C1713; J0690; J1100; J1200; J2250; J2405; J2704; J3010; J7120

== ENCOUNTER 2023-03-25 09:20 | Outpatient (CLI) | payer OTHER, SELFPAY ==
--- NOTE | 2023-03-25 11:30 | NEURO_ITS ---
Impression: # Insulin dependent diabetic complains of increasing pain and numbness of hands. # Bilateral Carpal Tunnel Syndrome, right more than left. # Right ulnar neuropathy across the elbow. # Abnormal Needle/EMG exam. Nerve Conduction Studies Anti Sensory Summary Table Stim Site NR Peak (ms) P-T Amp (?V) Site1 Site2 Delta-P (ms) Dist (cm) Terence (m/s) Left Median Anti Sensory (2-3nd Digit) Wrist 4.0 25.0 Wrist 2-3nd Digit 4.0 14.0 35 Wrist 4.0 12.4 Wrist 2-3nd Digit 4.0 14.0 35 Right Median Anti Sensory (2-3nd Digit) Wrist 5.2 7.7 Wrist 2-3nd Digit 5.2 14.0 27 Wrist 6.6 5.2 Wrist 2-3nd Digit 5.2 14.0 27 Left Radial Anti Sensory (Base 1st Digit) Wrist 2.5 8.1 Wrist Base 1st Digit 2.5 0.0 Right Radial Anti Sensory (Base 1st Digit) Wrist 3.2 22.3 Wrist Base 1st Digit 3.2 0.0 Left Ulnar Anti Sensory (5th Digit) Wrist 3.0 15.7 Wrist 5th Digit 3.0 14.0 47 Right Ulnar Anti Sensory (5th Digit) Wrist 3.3 10.8 Wrist 5th Digit 3.3 14.0 42 Motor Summary Table Stim Site NR Onset (ms) O-P Amp (mV) Site1 Site2 Delta-0 (ms) Dist (cm) Terence (m/s) Left Median Motor (Abd Poll Brev) Wrist 4.2 3.4 Elbow Wrist 6.2 34.0 55 Elbow 10.4 2.9 Right Median Motor (Abd Poll Brev) Wrist 5.9 1.4 Elbow Wrist 6.3 32.0 51 Elbow 12.2 1.6 Left Ulnar Motor (Abd Dig Minimi) Wrist 2.8 5.7 A Elbow Wrist 6.3 34.0 54 A Elbow 9.1 3.8 Right Ulnar Motor (Abd Dig Minimi) Wrist 3.1 6.4 A Elbow Wrist 8.3 35.0 42 A Elbow 11.4 4.1 B Elbow Wrist 5.0 24.0 48 B Elbow 8.1 4.7 F Wave Studies NR F-Lat (ms) L-R F-Lat (ms) Left Median (Mrkrs) (Abd Poll Brev) 33.80 2.57 Right Median (Mrkrs) (Abd Poll Brev) 36.37 2.57 Left Ulnar (Mrkrs) (Abd Dig Min) 34.30 0.50 Right Ulnar (Mrkrs) (Abd Dig Min) 34.80 0.50 EMG Side Muscle Nerve Root Ins Act Fibs Amp Dur Recrt Comment Right 1stDorInt Ulnar C8-T1 Nml Nml Nml >12ms Reduced Right Ext Indicis Radial (Post Int) C7-8 Nml Nml Nml Nml Nml Right Ext Digitorum Radial (Post Int) C7-8 Nml Nml Nml Nml Nml Right BrachioRad Radial C5-6 Nml Nml Nml Nml Nml Right PronatorTeres Median C6-7 Nml Nml Nml Nml Nml Right Abd Poll Brev Median C8-T1 Nml Nml Nml >12ms Reduced Left 1stDorInt Ulnar C8-T1 Nml Nml Nml Nml Nml Left Ext Indicis Radial (Post Int) C7-8 Nml Nml Nml Nml Nml Left Ext Digitorum Radial (Post Int) C7-8 Nml Nml Nml Nml Nml Left BrachioRad Radial C5-6 Nml Nml Nml Nml Nml Left PronatorTeres Median C6-7 Nml Nml Nml Nml Nml Left Abd Poll Brev Median C8-T1 Nml Nml Nml >12ms Reduced Right ABD Dig Min Ulnar C8-T1 Nml Nml Nml Nml Nml Right Biceps Musculocut C5-6 Nml Nml Nml Nml Nml Right Triceps Radial C6-7-8 Nml Nml Nml Nml Nml Right Deltoid Axillary C5-6 Nml Nml Nml Nml Nml MTDD
== END 2023-03-25 09:21 | disposition home or self-care (01) ==
PROVIDERS: PCP Family Medicine; Visit Provider Nurse Practitioner Family
DX: M79.89 Other specified soft tissue disorders (principal); G56.03 Carpal tunnel syndrome, bilateral upper limbs; G56.21 Lesion of ulnar nerve, right upper limb
CPT/HCPCS: 95886; 95911

== ENCOUNTER 2023-06-02 01:36 | Day surgery (SDC) | payer OTHER, SELFPAY ==
[2023-05-29 09:33] VITALS: BMI 29.9
--- NOTE | 2023-05-29 09:39 | PC.NURSE ---
Report to the Outpatient Waiting Room, entrance under the green pavilion located off [facility], at time 1230 on date 06/02/23. Planned Procedure Time: 1330. Time changes happen often and if your time is changed the preop area will call you the afternoon before. - You and your visitor will be asked to self-screen and do not enter if you have any COVID symptoms. - A mask is optional within the hospital at this time. Patients may have LIGHT BREAKFAST. Take the following medications with a SIP of water the morning of surgery: PRESCRIBED DO NOT STOP ANY OF YOUR OTHER PRESCRIPTION MEDICATIONS PRIOR TO SURGERY ?EXCEPT THE FOLLOWING Medications to discontinue per physician: N/A Date to take last dose: N/A Please no make-up, nail spanish, hairspray, perfume, deodorant, or body powder the day of surgery. No jewelry (including any body piercings) or valuables the day of surgery, leave them at home. Please take a shower or bath the night before, or the morning of, surgery with an antibacterial soap. Wear comfortable, loose fitting clothing. - Jewelry must be removed prior to entering the operating room. Rings and piercings that are not removed may be cut off. - The hospital will not accept responsibility for valuables. - Please leave all valuables, including medications, at home the day of surgery. YOU MAY DRIVE YOURSELF HOME. Follow any additional instructions given to you from your surgeon. If you or anyone in your household have experienced Covid symptoms in the past week, please notify your surgeon or the nurse liaison at the phone number below for possible testing. Telephone instructions given to PT - JP ALEXIS and asked if any additional questions and then verbalized understanding. Patient advised to call surgeon office or pre surgery nurse liaison [phone] if any additional questions.
[2023-06-02] VITALS (9 sets, daily range): BP systolic 128–161; BP diastolic 80–94; PULSE 94–106; RESP 14–22; TEMP 36.5; O2SAT 94–100
--- NOTE | 2023-06-02 10:14 | WPDHPUPDATE1 ---
History and Physical Update Update Date/Time: 06/02/23 10:14 History and Physical has been reviewed, including an updated exam of the patient. There are NO changes in the patient's condition. Risks, benefits, and alternatives have been discussed and questions answered. Patient agrees to proceed with procedure.
[2023-06-02] MEDS: LIDO 1%/EPINEPHRINE 1:100,000 20 ML VIAL 15 ML INFILTRATE (10:58)
--- NOTE | 2023-06-02 10:59 | SUR.OPER ---
BUTTOCK START 10:58.
--- NOTE | 2023-06-02 11:18 | SUR.OPER ---
BUTTOCK SURGERY END 11:18.
--- NOTE | 2023-06-02 11:30 | SUR.OPER ---
START LEFT CHEEK 11:24.
--- NOTE | 2023-06-02 11:58 | SUR.OPER ---
local 17ml right buttock and 12ml left face cheek of local mix.
--- NOTE | 2023-06-02 11:59 | SUR.OPER ---
patient transfered to outpatient alert and oriented stated being comfortable.
--- NOTE | 2023-06-02 12:01 | W.PM.PROC2 ---
Procedure Note - Detailed Date of Procedure 06/02/23 Pre-op Diagnosis Right medial buttock skin lesion, Left cheek skin lesion Post-op Diagnosis Same Procedure Performed Excision left cheek skin lesion with 3cm intermediate layered wound closure Excision right medial buttock skin lesion with 3cm intermediate layered wound closure. Surgeon Neil Villalpando MD Anesthesia Local Indications Patient is a 62-year-old white male presented with irritated sometimes draining skin lesion the right medial buttock region. Also has a small skin lesion which is irritated on his left lower medial cheek. Presents now for excision of both these skin lesions. Findings The left cheek skin lesion measured approximately 0.5cm in diameter. It was irritated but did not appear to be ulcerated. The right medial buttock skin lesion appeared to be more consistent with chronic abscess with some nodularity and evidence of prior drainage. It measured 1cm in diameter. Description of Procedure After informed consent was obtained patient brought to the operating room was placed in the right lateral decubitus position with his knees up in a position on the operating table. The area the right medial buttock region was prepped and draped usual sterile fashion. A time-out was then performed correctly identifying the patient as well as procedure performed verifying both site markings. No antibiotics were given as this was a local anesthetic procedure about need for starting an IV. First started by injecting 1% lidocaine mixed with 0.5% Marcaine with some around the medial right buttock skin lesion which was at the top of the upper midline gluteal cleft. This is skin lesion did not appear to be consistent with any sequela of upon emesis disease. Once adequate anesthesia was achieved I then made a vertical elliptical incision around the skin lesion. The skin lesion itself measured approximately 1cm in diameter. I made a elliptical skin lesion measuring 2.5cm in length by 1cm in width. I excised this completely with a combination electrocautery and scalpel dissection. The ellipse of tissue containing the skin lesion measured 2.5x1 by 0.5cm. The skin lesion was sent to pathology for examination. Hemostasis was achieved in the incision electrocautery. After irrigation was then closed utilizing interrupted 3-0 Vicryl sutures in the subcutaneous tissues. The skin edges were then approximated utilizing a running subcuticular 3-0 Monocryl suture. The length intermediate layered wound closure of the right medial buttock wound was 3cm in length. The incision was then cleaned and then skin glue was applied. I then turned my attention towards the cheek skin lesion. Again this area was then prepped and draped in usual sterile fashion. 1% lidocaine mixed with 0.5 % Marcaine with epinephrine was again injected around the skin lesion for local anesthetic effect. Once adequate anesthesia was achieved I then made a elliptical incision following the skin lines in the left lower medial cheek region. Incision carried deeply down through the dermis skin with a scalpel and then utilizing the scalpel only for dissection I completely excised off the small skin lesion. The skin lesion measured 0.5cm in diameter. The ellipse the excised off measured 2x1x0.3cm. This ellipse of skin containing the skin lesion was sent to pathology for examination separately from the right buttock lesion. Hemostasis was achieved an incision was electrocautery this incision was then closed with a intermediate layered wound closure placing interrupted 4 0 Monocryl sutures in the subcutaneous tissues. This was then followed by a running subcuticular 5 0 Prolene suture. Incision closed nicely without any tension. There was no distortion of the corner of the left side of the mouth. The incision was then cleaned and then the patient was taken directly from the operating room to the outpatient area where his left get dressed and
== END 2023-06-02 12:12 | disposition home or self-care (01) ==
PROVIDERS: PCP Family Medicine; Visit Provider Surgery
PROC: (CPT 11440; principal; 2023-06-02 10:30)
DX: L28.1 Prurigo nodularis (principal); L72.0 Epidermal cyst
CPT/HCPCS: 11440; 12052; 11401; 12032; 88305; A9270

== ENCOUNTER 2024-01-07 07:00 | Outpatient (NON) | payer OTHER, SELFPAY | END 2024-01-07 07:01 | disposition home or self-care (01) | LOC: ANHLAB 01-08 11:18 | PROVIDERS: PCP Family Medicine; Visit Provider Internal Medicine Gastroenterology | DX: K21.9 Gastro-esophageal reflux disease without esophagitis (principal) | CPT/HCPCS: 88305 ==

== ENCOUNTER 2024-01-07 08:16 | Day surgery (SDC) | payer OTHER, SELFPAY ==
[2023-12-09 13:30] VITALS: BMI 32.4
[2023-12-22 14:36] VITALS: BMI 32.4
[2024-01-07 09:23] VITALS: BP 120/87; PULSE 97; RESP 18; TEMP 36.6; O2SAT 100
--- NOTE | 2024-01-07 09:24 | WPDANESEPPF ---
Anes - Initial Pre Proc Eval Procedure: Operation Date: 01/07/24 10:30 Proposed Procedures p Esophagogastroduodenoscopy - Ricardo Apple MD Date/Time: 01/07/24 09:24 Surgeon: Ricardo Apple MD Pre Op Diagnosis: Carroll's Esophagus Patient Data Age: 63 Gender: M Height: 1.85 m Weight: 110.2 kg Last Vital Signs Temp 36.6 C 01/07/24 09:23 Pulse 97 01/07/24 09:23 Resp 18 01/07/24 09:23 BP 120/87 01/07/24 09:23 Pulse Ox 100 01/07/24 09:23 O2 Del Method Room Air 01/07/24 09:23 Allergies Allergy/AdvReac Type Severity Reaction Status Date / Time ciprofloxacin Allergy Severe Other Verified 01/07/24 09:22 NSAIDS (Non-Steroidal AdvReac Intermediate Abdominal Verified 01/07/24 09:22 Anti-Inflamma Pain fentanyl AdvReac Hyperactive Verified 01/07/24 09:22 metformin AdvReac Gastrointestinal Verified 01/07/24 09:22 Upset rosuvastatin [From Crestor] AdvReac myalgias Verified 01/07/24 09:22 semaglutide [From Ozempic] AdvReac Gastrointestinal Verified 01/07/24 09:22 Upset Home Medications Medication Instructions Recorded Confirmed Type lancets #200 ea 06/01/20 12/22/23 Rx blood sugar diagnostic (Blood #120 ea 04/02/22 12/22/23 Rx Glucose Test strips) pantoprazole 40 mg tablet,delayed 40 mg PO BID #180 tabs 09/10/23 01/07/24 Rx release dapagliflozin propanediol 10 mg 10 mg PO DAILY #90 tabs 09/18/23 01/07/24 Rx tablet (Farxiga) lisinopril 20 mg tablet 20 mg PO DAILY #90 tabs 10/27/23 01/07/24 Rx sitagliptin phosphate 100 mg 100 mg PO DAILY #90 tabs 10/29/23 01/07/24 Rx tablet (Januvia) ropinirole 3 mg tablet 3 mg PO QHS #90 tabs 11/07/23 01/07/24 Rx duloxetine 30 mg capsule,delayed 30 mg PO DAILY #90 caps 12/05/23 01/07/24 Rx release (Cymbalta) duloxetine 60 mg capsule,delayed 60 mg PO DAILY #90 caps 12/05/23 01/07/24 Rx release (Cymbalta) insulin degludec 100 unit/mL (3 50 unit (0.5 mL) subcut QHS #45 mL 12/05/23 01/07/24 Rx mL) subcutaneous pen (Tresiba FlexTouch U-100 insulin) Patient hx anesthesia problems: none Family hx anesthesia problems: none Results Review: All pre-operative results and documents have been reviewed as part of the pre-operative evaluation. [facility] Past Medical History Medical History BMI 31.0-31.9,adult BMI greater than 30 Chronic neck pain Depression with anxiety Essential hypertension GERD (gastroesophageal reflux disease) Hyperlipidemia PAULINO on CPAP Restless leg Tobacco abuse Surgical History Surgical History H/O foot surgery H/O local excision of skin lesion L cheek, L buttock 06/02 Family History Family History Father Cancer Mother Diabetes mellitus Sibling defect Heart disease Other Cerebrovascular accident Family history of coronary artery disease Hypertension Social History Social History Smoking packs per day: 2 Smoking cigarettes per day: 40.0 Years smoked: 46 Smoking pack-years: 92.00 Smoking status: Current every day smoker Tobacco type: cigarettes Second hand tobacco smoke exposure: Yes Alcohol intake: current Drinks per week: 2 Alcohol use details: occasional, approximately once monthly Substance use: current Substance use type: marijuana Do You Feel Safe in your Home?: Yes Lack of Transportation: No Lack of Food: Never True Current Housing: I Have Housing Concerned About Future Housing: No Difficulty Paying Gas/Electric Bills: No Difficulty Paying for Meds: No Currently Unemployed: No Education: Associate Degree Difficulty w/ Childcare or Family Care: No Living arrangements: with family Additional living arrangements comments: BROTHER Occupation/Education: occupation Additional o
[2024-01-07] MEDS: LACTATED RINGERS 1,000 ML 150 ML IV CONT (09:26)
--- NOTE | 2024-01-07 09:33 | PM.HPGS ---
History of Present Illness History of Present Illness Consent: Risks, benefits, and alternatives have been discussed and questions answered. Patient agrees to proceed with procedure. Chief complaint: Carroll's Esophagus Narrative: Jesus Woods is a 63 year old male presents for follow-up screening EGD. Patient diagnosed With Carroll's esophagus. Patient currently doing well taking Protonix 40mg p.o. b.i.d.. Patient denies any dysphagia or bleeding. Family history is noncontributory. Review of Systems Review of Systems: All systems reviewed & are unremarkable except as noted in HPI and below PMFSH Past Medical History Medical History BMI 31.0-31.9,adult BMI greater than 30 Chronic neck pain Depression with anxiety Essential hypertension GERD (gastroesophageal reflux disease) Hyperlipidemia PAULINO on CPAP Restless leg Tobacco abuse Surgical History Surgical History H/O foot surgery H/O local excision of skin lesion L cheek, L buttock 06/02 Family History Family History Father Cancer Mother Diabetes mellitus Sibling defect Heart disease Other Cerebrovascular accident Family history of coronary artery disease Hypertension Social History Social History Smoking packs per day: 2 Smoking cigarettes per day: 40.0 Years smoked: 46 Smoking pack-years: 92.00 Smoking status: Current every day smoker Tobacco type: cigarettes Second hand tobacco smoke exposure: Yes Alcohol intake: current Drinks per week: 2 Alcohol use details: occasional, approximately once monthly Substance use: current Substance use type: marijuana Do You Feel Safe in your Home?: Yes Lack of Transportation: No Lack of Food: Never True Current Housing: I Have Housing Concerned About Future Housing: No Difficulty Paying Gas/Electric Bills: No Difficulty Paying for Meds: No Currently Unemployed: No Education: Associate Degree Difficulty w/ Childcare or Family Care: No Living arrangements: with family Additional living arrangements comments: BROTHER Occupation/Education: occupation 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[employer] Gender identity (if verbalized by the patient): Male Spiritual care concerns: No Agree to blood products: Yes Meds Home Medications and Allergies Home Medications Medication Instructions Recorded Confirmed Type lancets #200 ea 06/01/20 12/22/23 Rx blood sugar diagnostic (Blood #120 ea 04/02/22 12/22/23 Rx Glucose Test strips) pantoprazole 40 mg tablet,delayed 40 mg PO BID #180 tabs 09/10/23 01/07/24 Rx release dapagliflozin propanediol 10 mg 10 mg PO DAILY #90 tabs 09/18/23 01/07/24 Rx tablet (Farxiga) lisinopril 20 mg tablet 20 mg PO DAILY #90 tabs 10/27/23 01/07/24 Rx sitagliptin phosphate 100 mg 100 mg PO DAILY #90 tabs 10/29/23 01/07/24 Rx tablet (Januvia) ropinirole 3 mg tablet 3 mg PO QHS #90 tabs 11/07/23 01/07/24 Rx duloxetine 30 mg capsule,delayed 30 mg PO DAILY #90 caps 12/05/23 01/07/24 Rx release (Cymbalta) duloxetine 60 mg capsule,delayed 60 mg PO DAILY #90 caps 12/05/23 01/07/24 Rx release (Cymbalta) insulin degludec 100 unit/mL (3 50 unit (0.5 mL) subcut QHS #45 mL 12/05/23 01/07/24 Rx mL) subcutaneous pen (Tresiba FlexTouch U-100 insulin) Allergies Allergy/AdvReac Type Severity Reaction Status Date / Time ciprofloxacin Allergy Severe Other Verified 01/07/24 09:22 NSAIDS (Non-Steroidal AdvReac Intermediate Abdominal Verified 01/07/24 09:22 Anti-Inflamma Pain fentanyl AdvReac Hyperactive Verified 01/07/24 09:22 metformin AdvReac Gastrointestinal Verified 01/07/24 09:22 Upset rosuvastatin [From Crestor] AdvReac myalgias Verified
[2024-01-07 09:39] LABS: Glucose Point of Care 122 mg/dl (65-105)
[2024-01-07 10:58] VITALS: BP 112/78; PULSE 88; RESP 16; O2SAT 93
--- NOTE | 2024-01-07 11:07 | WPDANESPN ---
Anes - Prog Note Post-Op Date/Time: 01/07/24 11:07 Cardiovascular status: normal Respiratory status: normal Airway patency: baseline Mental status: baseline Post-Op hydration status: normal Vital Signs: Last Vital Signs Temp 36.6 C 01/07/24 09:23 Pulse 88 01/07/24 10:58 Resp 16 01/07/24 10:58 BP 112/78 01/07/24 10:58 Pulse Ox 93 01/07/24 10:58 O2 Del Method Room Air 01/07/24 10:58 Pain Score (VAS): 0 01/07/24 09:36 POC Capillary Glucose 122 H Post-procedural complaints: none Patient Feedback: Patient satisfied with anesthetic care.
[2024-01-07 11:08] VITALS: BP 97/70; PULSE 82; RESP 16; O2SAT 93
[2024-01-07 11:18] VITALS: BP 106/72; PULSE 87; RESP 16; O2SAT 95
== END 2024-01-07 12:17 | disposition home or self-care (01) ==
PROVIDERS: PCP Family Medicine; Visit Provider Internal Medicine Gastroenterology
PROC: 0DJ08ZZ Inspection of Upper Intestinal Tract, Via Natural or Artificial Opening Endoscopic (ICD-10-PCS; CPT 43235; principal; 2024-01-07 10:30)
DX: K21.9 Gastro-esophageal reflux disease without esophagitis (principal); Z87.19 Personal history of other diseases of the digestive system
CPT/HCPCS: 43239

== ENCOUNTER 2024-04-23 01:04 | Day surgery (SDC) | payer OTHER, SELFPAY ==
[2024-04-19 08:44] VITALS: BMI 31.3
--- NOTE | 2024-04-19 08:51 | PC.NURSE ---
Report to the Outpatient Waiting Room, entrance under the green pavilion located off [facility], at time _0930_ on date _[id number]_. Planned Procedure Time: _1130_.? Time changes happen often and if your time is changed the preop area will call you the afternoon before. - You and your visitor will be asked to self-screen and do not enter if you have any COVID symptoms. Please call surgeon if you need to reschedule. - A mask is optional within the hospital at this time. Patients may have clear liquids (water, carbonated beverages, clear teas, apple juice) until 3 hours prior to surgery with a maximum of 20 ounces. - No food from midnight until time of surgery and no smoking Take only the following medications with a SIP of water on the morning of surgery: ___None DO NOT STOP ANY OF YOUR OTHER PRESCRIPTION MEDICATIONS PRIOR TO SURGERY EXCEPT THE FOLLOWING Medications to discontinue per physician ____None____ Please no make-up, nail kazakh, hairspray, perfume, deodorant, or body powder the day of surgery.? No jewelry (including any body piercings) or valuables the day of surgery, leave them at home.? Please take a shower or bath the night before, or the morning of, surgery with an antibacterial soap.? Wear comfortable, loose fitting clothing.? - Jewelry must be removed prior to entering the operating room.? Rings and piercings that are not removed may be cut off. - The hospital will not accept responsibility for valuables.? - Please leave all valuables, including medications, at home the day of surgery. If you are going home after surgery, a licensed milk delivery driver must drive you home.? - NO public transportation without another adult if you receive anesthesia. - We recommend that an adult stay with you for 24 hours following discharge. - We also recommend that you do not drive, make important decision, drink alcoholic beverages, or take any drugs that were not prescribed by your health care provider for at least 24 hours after your discharge time. Follow any additional instructions given to you from your surgeon. Telephone instructions given to _Jesus__and asked if any additional questions and then verbalized understanding. Patient advised to call surgeon office or pre surgery nurse liaison [phone] if any additional questions.
--- NOTE | ~2024-04-23 | XR_ITS ---
INTRAOPERATIVE FLUOROSCOPY: CLINICAL HISTORY: 63 years old Male; HARDWARE REMOVAL, RIGHT FOOT PROCEDURE COMMENTS: Limited intraoperative fluoroscopy of the foot was performed. CUMULATIVE DOSE: 0.046 mGy FLUOROSCOPY TIME: 1.3 seconds FINDINGS/IMPRESSION: Please refer to operative note for further details. Reviewed, dictated and finalized at location A. [employer]
--- NOTE | 2024-04-23 07:20 | WPDHPUPDATE1 ---
History and Physical Update Update Date/Time: 04/23/24 07:20 History and Physical has been reviewed, including an updated exam of the patient. There are NO changes in the patient's condition. Risks, benefits, and alternatives have been discussed and questions answered. Patient agrees to proceed with procedure.
[2024-04-23 10:09] LABS: Glucose Point of Care 129 mg/dl (65-105)
[2024-04-23 10:30] VITALS: BP 137/94; PULSE 92; RESP 14; TEMP 36.8; O2SAT 100
[2024-04-23] MEDS: LACTATED RINGERS 1,000 ML 30 ML IV CONT (10:30)
--- NOTE | 2024-04-23 11:01 | P.PNAN_ITS ---
Anes - Initial Pre Proc Eval Procedure: Operation Date: 04/23/24 11:30 Proposed Procedures p Removal Painful Hardware Right Foot - Ángel Galvan Jr., DPM Date/Time: 04/23/24 11:01 Surgeon: Ángel Galvan Jr., DPM Pre Op Diagnosis: Painful Hardware Right Foot Patient Data Age: 63 Gender: M Height: 1.91 m Weight: 110.2 kg Last Vital Signs Temp 36.8 C 04/23/24 10:30 Pulse 92 04/23/24 10:30 Resp 14 04/23/24 10:30 BP 137/94 H 04/23/24 10:30 Pulse Ox 100 04/23/24 10:30 O2 Del Method Room Air 04/23/24 10:30 Allergies Allergy/AdvReac Type Severity Reaction Status Date / Time ciprofloxacin Allergy Severe Other Verified 04/23/24 10:44 NSAIDS (Non-Steroidal AdvReac Intermediate Abdominal Verified 04/23/24 10:44 Anti-Inflamma Pain fentanyl AdvReac Hyperactive Verified 04/23/24 10:44 metformin AdvReac Gastrointestinal Verified 04/23/24 10:44 Upset rosuvastatin [From Crestor] AdvReac myalgias Verified 04/23/24 10:44 semaglutide [From Ozempic] AdvReac Gastrointestinal Verified 04/23/24 10:44 Upset Home Medications Medication Instructions Recorded Confirmed Type lancets #200 ea 06/01/20 04/19/24 Rx blood sugar diagnostic (Blood #120 ea 04/02/22 04/19/24 Rx Glucose Test strips) pantoprazole 40 mg tablet,delayed 40 mg PO BID #180 tabs 09/10/23 04/19/24 Rx release dapagliflozin propanediol 10 mg 10 mg PO DAILY #90 tabs 09/18/23 04/19/24 Rx tablet (Farxiga) lisinopril 20 mg tablet 20 mg PO DAILY #90 tabs 10/27/23 04/19/24 Rx duloxetine 60 mg capsule,delayed 60 mg PO DAILY #90 caps 12/05/23 04/19/24 Rx release (Cymbalta) sitagliptin phosphate 100 mg 100 mg PO DAILY #90 tabs 01/27/24 04/19/24 Rx tablet (Januvia) insulin degludec 100 unit/mL (3 52 unit (0.52 mL) subcut QHS #45 mL 03/12/24 04/19/24 Rx mL) subcutaneous pen (Tresiba FlexTouch U-100 insulin) duloxetine 30 mg capsule,delayed 30 mg PO DAILY #90 caps 03/18/24 04/19/24 Rx release (Cymbalta) ropinirole 3 mg tablet 3 mg PO QHS #90 tabs 03/18/24 04/19/24 Rx Laboratory Tests 04/23/24 10:07 POC Capillary Glucose 129 H mg/dl (65-105) Patient hx anesthesia problems: none Family hx anesthesia problems: none Results Review: All pre-operative results and documents have been reviewed as part of the pre- operative evaluation. [facility] Past Medical History Medical History (Updated 04/22/24 @ 15:46 by Kavin Erwin DO) BMI 31.0-31.9,adult BMI greater than 30 Chronic neck pain Depression with anxiety Diabetes type 2, controlled Essential hypertension GERD (gastroesophageal reflux disease) Hyperlipidemia Injury of cervical region of back PAULINO on CPAP Restless leg Tobacco abuse Surgical History Surgical History H/O foot surgery H/O local excision of skin lesion L cheek, L buttock 06/02 Family History Family History Father Cancer Mother Diabetes mellitus Sibling defect Heart disease Other Cerebrovascular accident Family history of coronary artery disease Hypertension Social History Social History Smoking packs per day: 2 Smoking cigarettes per day: 40.0 Years smoked: 44 Smoking pack-years: 88.00 Smoking status: Current every day smoker Tobacco type: cigarettes Second hand tobacco smoke exposure: Yes Alcohol intake: current Drinks per week: 2 Alcohol use details: occasional, approximately once monthly Substance use: current Substance use type: marijuana Do You Feel Safe in your Home?: Yes Lack of Transportation: No Lack of Food: Never True Current Housing: I Have Housing Concerned About Future Housing: No Difficulty Paying Gas/Electric Bills: No Difficulty Paying for Meds: No Currently Unemployed: No Education: Associate Degree Difficulty w/ Childcare or Family Care: No Living arrangements: with family Additional living arrangements comments: BROTHER Occupation/Education: occupation 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 Informed Consent: The patient's anesthetic plan and its attendant risks and benefits were discussed with the patient/family/POA. Questions were solicited and answers provided to the satisfaction of the patient/family/POA.
[2024-04-23] MEDS: ceFAZolin 2 GM/D5W 50 ML 2 GM/50 ML BAG IVPB (11:49)
[2024-04-23] MEDS: LIDOCAINE HCL 2% PF INJ 5 ML VIAL 10 ML INFILTRATE (12:16)
[2024-04-23 12:41] VITALS: BP 103/61; PULSE 82; RESP 16; O2SAT 97
--- NOTE | 2024-04-23 12:46 | W.PM.PROC2 ---
Procedure Note - Detailed Date of Procedure 04/23/24 Pre-op Diagnosis Painful Hardware Right Foot Post-op Diagnosis Same Procedure Performed Removal of hardware right foot Surgeon Ángel Galvan Jr., DPM Anesthesia MAC and Local Indications Painful right forefoot Description of Procedure Under mild sedation, the patient was brought in to the operating room, placed on the operating table in the supine position. A pneumatic ankle tourniquet was placed about the patient's leg. Following monitored anesthesia care, local anesthesia was obtained about the patients ankle utilizing 20 mL of a 1:1 mixture of 2% Lidocaine plain and 0.5% Marcaine plain. The foot was then scrubbed, prepped, and draped in the usual aseptic manner. An Esmarch bandage was then used to exsanguinate the patient's foot and the pneumatic ankle tourniquet was then inflated. An incision was made along the dorsal aspect of the first metatarsal phalangeal joint right foot. Dissection was continued to the subcutaneous tissues all bleeders were cauterized as necessary. A full length periosteal and capsular incision was made overlying the dorsal aspect of the first metatarsal phalangeal joint arthrodesis site. The dorsal plate and screws were removed in toto. Fluoroscopy was used to confirm complete hardware removal. There was significant scar tissue overlying the dorsum of the joint. This hypertrophic scar tissue was excised. There was incomplete union of the arthrodesis site however there was fibrous tissue serving as interpositional tissue. The wound site was flushed with sterile saline. Next, the periosteum and capsule was reapproximated with 4-0 Vicryl. The subcutaneous tissue was reapproximated with 4-0 Vicryl and last the skin was reapproximated and coapted utilizing 4-0 Monocryl in a running subcuticular suture fashion technique. Upon completion of the procedure, the incision was dressed with Steri strips Adaptic, 4x4s, Kerlix, and Coban. The pneumatic ankle tourniquet was then deflated and a prompt hyperemic response was noted to all digits of the foot. The Surgical Shoe will be applied in PACU. The patient did very well with the procedure and the anesthesia. The patient was transferred to the recovery room with vital signs stable and vascular status intact to all toes of the foot. Following a period of postoperative monitoring, the patient will be discharged home on the following written and oral postoperative instructions: 1. The patient should keep the dressing clean, dry, and intact. Use a cast protector bag with showers. 2. The patient will be protected weightbearing a surgical shoe. 3. Patient should ice and elevate the affected lower extremity while at rest. 4. The patient is to contact Dr. Galvan for all postop care and if any problems arise. 5. Prescriptions were written for Tramadol to be taken 1 p.o. q.4 hours as needed for severe pain. Estimated Blood Loss 1 Drains No Packing No Pathology None sent Complications No immediate complications Condition Stable Disposition Same day
[2024-04-23 12:51] LABS: Glucose Point of Care 118 mg/dl (65-105)
[2024-04-23 12:55] VITALS: O2SAT 95
[2024-04-23 13:10] VITALS: BP 137/99; PULSE 88
[2024-04-23 13:40] VITALS: BP 133/89; PULSE 87
--- NOTE | 2024-04-23 14:11 | SUR.PHASEII ---
Patient vitals are stable. He's unhooked from the monitors and waiting for ride.
--- NOTE | 2024-04-23 14:15 | SUR.PHASEII ---
Dr. Galvan called about drainage coming through the coban.
== END 2024-04-23 14:30 | disposition home or self-care (01) ==
PROVIDERS: PCP Family Medicine; Visit Provider Podiatrist Foot & Ankle Surgery
PROC: (CPT 20680; principal; 2024-04-23 11:30)
DX: T84.84XA Pain due to internal orthopedic prosthetic devices, implants and grafts, initial encounter (principal); M79.671 Pain in right foot; Y83.8 Other surgical procedures as the cause of abnormal reaction of the patient, or of later complication, without mention of misadventure at the time of the procedure; E11.9 Type 2 diabetes mellitus without complications; I10 Essential (primary) hypertension; F41.8 Other specified anxiety disorders; E78.5 Hyperlipidemia, unspecified; G47.33 Obstructive sleep apnea (adult) (pediatric); K21.9 Gastro-esophageal reflux disease without esophagitis; G25.81 Restless legs syndrome; Z79.84 Long term (current) use of oral hypoglycemic drugs; Z79.4 Long term (current) use of insulin; F17.210 Nicotine dependence, cigarettes, uncomplicated; F12.90 Cannabis use, unspecified, uncomplicated; E66.9 Obesity, unspecified; Z68.30 Body mass index [BMI] 30.0-30.9, adult
CPT/HCPCS: 20680; 82948; 99199; J0690; J2003; J2250; J2405; J2704; J3010; J7120

== ENCOUNTER 2024-06-28 10:02 | Outpatient (CLI) | payer OTHER, SELFPAY ==
[2024-06-28 11:03] LABS: Basophils Percent Auto 0.4 % (0.2-1.2); Eosinophils Absolute Auto 0.1 K/mm3 (0-0.3); Hematocrit 54.8 % (42.0-52.0); Hemoglobin 18.2 g/dL (14.0-18.0); Immature Granulocyte Absolute 0.07 K/mm3 (0.00-0.031); Immature Granulocyte Percent A 0.7 % (0-0.5); Lymphocytes Percent Auto 16.6 % (18.3-44.2); Mean Corpuscular HGB Conc 33.2 g/dl (32-36); Mean Corpuscular Hemoglobin 30.3 pg (26-34); Mean Corpuscular Volume 91.2 fl (80-100); Mean Platelet Volume 11.1 fl (7.4-10.4); Monocytes Absolute Auto 0.9 K/mm3 (0.1-0.6); Monocytes Percent Auto 8.9 % (2.6-8.5); Neutrophils Absolute Auto 6.9 K/mm3 (1.3-6.7); Neutrophils Percent Auto 72.4 % (45.5-73.1); Platelet Count Result 325 k/mm3 (150-375); Red Blood Count 6.01 M/mm3 (4.6-6.20); Red Cell Distribution Width 12.7 % (11.5-14.5); White Blood Count 9.6 K/mm3 (4.5-10.0)
[2024-06-28 11:11] LABS: Alanine Aminotransferase 25 U/L (6-50); Albumin Level 4.5 g/dL (3.5-5.1); Alkaline Phosphatase 81 U/L (38-126); Anion Gap 8 mmol/L (4-12); Aspartate Amino Transferase 28 U/L (17-59); Bilirubin,Total 0.9 mg/dL (0.2-1.3); Blood Urea Nitrogen 20 mg/dL (9-20); Carbon Dioxide 30 mmol/L (22-30); Chloride 100 mmol/L (98-107); Cholesterol 194 mg/dL (0-200); Estimated Glomerular Filt Rate > 60; Glucose 80 mg/dL (65-110); HDL Direct 44 mg/dL; Potassium 3.9 mmol/L (3.4-5.0); Sodium 138 mmol/L (137-145); Triglycerides 96 mg/dL (<150)
[2024-06-28 11:24] LABS: LDL Cholesterol Direct 112 mg/dL
[2024-06-28 11:44] LABS: Prostate Specific Antigen 3.5 ng/mL (< OR = 4.0); Thyroid Stimulating Hormone 0.929 uIU/mL (0.465-4.680)
[2024-06-28 12:28] LABS: Creatinine Urine 198.1 mg/dL
[2024-06-28 12:33] LABS: MALB Creatinine Ratio 72.3 mg/g (0-30); Microalbumin Urine Random 143.3 mg/L (0-16.7)
[2024-06-30 05:09] LABS: SS-A <1.0 NEG AI (<1.0 NEG); SS-B <1.0 NEG AI (<1.0 NEG)
[2024-06-30 16:19] LABS: Lead, Blood <1.0 mcg/dL (<3.5)
[2024-07-01 10:33] LABS: Arsenic, Blood <10 mcg/L (<23); Mercury, Blood <5 mcg/L (<OR=10)
[2024-07-01 13:18] LABS: Vitamin B6 11.1 ng/mL (2.1-21.7)
[2024-07-01 20:58] LABS: Zinc 83 mcg/dL (60-130)
[2024-07-01 23:03] LABS: Immunofixation, Serum Normal pattern.
== END 2024-06-28 10:03 | disposition home or self-care (01) ==
LOC: ANHLAB 10:04
PROVIDERS: PCP Family Medicine; Referring Provider Student in an Organized Health Care Education/Training Program; Visit Provider Nurse Practitioner Adult Health
DX: G62.9 Polyneuropathy, unspecified (principal); I10 Essential (primary) hypertension; E78.5 Hyperlipidemia, unspecified; E11.40 Type 2 diabetes mellitus with diabetic neuropathy, unspecified; Z79.4 Long term (current) use of insulin; E07.9 Disorder of thyroid, unspecified; Z12.5 Encounter for screening for malignant neoplasm of prostate
CPT/HCPCS: 36415; 80053; 80061; 82043; 82175; 82525; 83655; 83825; 84153; 84207; 84443; 84630; 85025; 86038; 86039; 86235; 86334; 86335; G0103

== ENCOUNTER 2025-03-09 13:45 | Outpatient (CLI) | payer OTHER, SELFPAY ==
--- NOTE | ~2025-03-09 | XR_ITS ---
Examination: XR chest 2V Clinical History: R06.02 - Shortness of breath Comparison: None Technique: PA and Lateral Findings: Cardiomegaly. Mild interstitial markings. No focal airspace disease or pleural effusion. No acute bony abnormality. IMPRESSION: 1. Suspect mild interstitial pulmonary edema and/or pneumonitis. 2. Cardiomegaly. Reviewed, dictated and finalized at location R.
--- OUTSIDE RECORDS SUMMARY | 2025-03-09 13:50 | XMS_ITS | Clinical Summary ---
Author Organization [facility] [address] [place] [address] Care Team Providers Care Beam Carrier Hauler Pusher Name Role Phone Anne-Marie Del Rio NP Primary Care Provider Allergies Active Allergy Reactions Criticality Noted Date Comments Acetaminophen Unknown GI Ciprofloxacin Hives High Braxton [place] syndrome Hydrocodone Nausea & Vomiting Low Medications potassium citrate ER (UROCIT-K) 10 mEq (1,080 mg) CR tablet Take 10 mEq by mouth. Active emtricitabine-t enofovir disoproxil fumerate (TRUVADA) 200-300 mg per tablet Take 1 tablet by mouth daily. Active montelukast (SINGULAIR) 10 mg tablet Take 10 mg by mouth nightly. Active fluticasone (FLONASE) 50 mcg/actuation nasal spray Administer 2 sprays into each nostril daily. Active febuxostat (ULORIC) 40 mg tablet Take 1 tablet (40 mg total) by mouth daily. 90 tablet 1 8 Active allopurinol (ZYLOPRIM) 300 mg tablet Take 1 tablet (300 mg total) by mouth daily. 90 tablet 1 8 Active blood-glucose meter kitIndications: dx E 11.9 1 kit daily. 1 each 8 Active ARIPiprazole (ABILIFY) 5 mg tablet Take 1 tablet (5 mg total) by mouth daily. 30 tablet 8 Active busPIRone (BUSPAR) 15 mg tabletIndicatio ns:Generalized Anxiety Disorder Take 1 tablet (15 mg total) by mouth 2 (two) times a day. 60 tablet 8 Active lancets misc Check blood sugar once daily and as needed 100 each 5 8 Active ALPRAZolam (XANAX) 0.5 mg tablet Take 1 tablet (0.5 mg total) by mouth 2 (two) times a day as needed for anxiety. 60 tablet 1 8 Active ketorolac (ACULAR) 0.5 % ophthalmic solution 9 Active prednisoLONE acetate (PRED FORTE) 1 % ophthalmic suspension 9 Active tobramycin (TOBREX) 0.3 % ophthalmic solution 9 Active oxyCODONE-aceta minophen (PERCOCET) 7.5-325 mg per tabletIndicatio ns:Pain 9 Active FARXIGA 5 mg tablet TAKE 1 TABLET BY MOUTH ONCE DAILY 30 tablet 5 9 Active lisinopril (PRINIVIL,ZESTR IL) 20 mg tablet TAKE 1 TABLET BY MOUTH ONCE DAILY 90 tablet 9 Active dexlansoprazole (DEXILANT) 60 mg capsule Take 1 capsule (60 mg total) by mouth daily 90 capsule 1 9 Active Active Problems Problem Noted Date Diagnosed Date Tobacco use 01/11/2019 Assessment & Plan (01/11/2019 1:34 PM CDT): Tobacco cessation advised. BMI 30.0-30.9,adult 01/11/2019 Assessment & Plan (01/11/2019 2:05 PM CDT): Weight today is 243 with BMI 30.37. Patient reports weight gain of 25 lb since the beginning of the year. Maintain a healthy weight and healthy diet, increase physical activity. Individuals with a healthy diet: Consume a variety of nutrient-dense foods within and across the food groups, especially whole grains, fruits, vegetables, low-fat or fat-free milk or milk products, and lean meats. Limit the intake of saturated and trans fats, cholesterol, added sugars, sodium (salt), and alcohol. Limit caloric intake to meet caloric needs. Why Are Nutrition and Weight Status Important? A healthy diet helps people reduce their risks of developing conditions such as overweight, obesity, heart disease, high blood pressure, constipation, diabetes, diverticulosis, some cancers. 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 He does not recall physician we do not have records. We will schedule an Upper Endoscopy (EGD). Upper Endoscopy procedure risks, benefits and alternatives have been discussed with the patient. The differential diagnosis includes but is not limited to duodenal ulcer, gastric ulcer, gastritis, esophageal ulcerations, stomach polyps, neoplasms. Class 1 obesity due to exces s calories with serious comorbidity and body mass index (BMI) of 30.0 to 30.9 in adult 01/11/2019 Assessment & Plan (01/11/2019 1:55 PM CDT): Weight today is 243 lb with a BMI of 30.37. Target 10 % of current weight loss. Nausea and vomiting 01/11/2019 Assessment & Plan (01/11/2019 1:56 PM CDT): Ongoing nausea and vomiting. Patient has been taking pantoprazole. Please stop taking pantoprazole. Start taking Dexilant 60 mg once a day 30-60 minutes before dinner on empty stomach. In the morning for breakthrough symptoms she can take Zantac (Ranitidine) 150 mg. Will order blood work to rule out gluten allergy. You do not have to avoid gluten at this time. Gastroesophageal reflux disease 01/11/2019 Overview (01/11/2019): Added automatically from request for surgery [id number] GERD (gastroesophageal reflux disease) 9 Assessment & Plan (01/11/2019 1:34 PM CDT): The goal of acid reflux (heartburn or GERD) treatment is to alleviate symptoms, heal esophageal lining damage, and prevent complications. Patient has been taking Protonix 40 mg at bedtime. Stop Protonix. Start taking Dexilant 60 mg once a day before 30-60 min before dinner on empty stomach. If you have breakthrough symptoms take Zantac (ranitidine) 150 mg in the am over the counter. Stop taking Ibuprofen or other NSAIDs - read labels. Lifestyle modifications (recommended along with pharmacological therapy). - Avoid provocative foods: citrus, alcohol, coffee, chocolate, mints, onion, garlic, spicy or fatty foods. - Decrease consumption or avoid alcohol, caffeine, and acidic foods that aggravate symptoms. - Avoid smoking. - Maintain a healthy weight. Lack of exercise or inactivity leads to slow digestion. - Eat smaller meals, no eating three hours prior to bedtime. - Consider elevation of the head of the bed while sleeping if your symptoms are bothersome in bed. We recommend scheduling Upper Endoscopy (EGD). Upper Endoscopy procedure risks, benefits and alternatives have been discussed with the patient. The differential diagnosis includes but is not limited to duodenal ulcer, gastric ulcer, gastritis, esophageal ulcerations, stomach polyps, neoplasms. Assessment & Plan (09/18/2018 2:53 PM CDT): Breakthrough symptoms on protonix 40 mg. Due to reported hx of vilchis's esophagus, will refer to GI for eval. Eat small, frequent meals, with the main meal being midday. Avoid restrictive clothing, and avoid eating within 4 hours of bedtime. Sleep with the head of the bed elevated to prevent symptoms at night. Avoid tobacco, alcohol, and any aggravating foods, such as caffeine, chocolate, peppermint, citrus, fried/fatty foods, and spicy foods. PAULINO (obstructive sleep apnea) 09/18/2018 Assessment & Plan (09/18/2018 2:55 PM CDT): Continue cpap Diabetes mellitus, type 2 04/17/2018 Assessment & Plan (04/20/2018 2:38 PM SAFETY SITTER): Continue farxiga and will assess A1c today. rx sent for new testing supplies. Please obtain yearly: 1. Hemoglobin A1C and Fasting Lipid Profile 2. Dilated Eye Exam 3. Monofilament Foot Exam 4. Microalbumin Urine Collection If you notice vision changes or non-healing wounds, please contact the office. Please check your feet daily. If your blood sugar is >400 or <50, please contact the office. Gout 01/16/2018 Assessment & Plan (09/18/2018 1:56 PM CDT): Pt cannot recall if he is taking uloric or allopurinol. Advised of recent black box warning assoc with uloric. He will double check his meds at home and if he is on this, will stop Assessment & Plan (01/16/2018 1:33 PM CDT): Stable on allopurinol and uloric. Will refill these today Depression 11/06/2017 Assessment & Plan (01/16/2018 1:34 PM CDT): List of psychiatrists given, including [facility]. Pt to call around for most convenient location/time, and notify us. Will place referral at that time if needed. If symptoms worsen and becomes suicidal, recommend ER SANDI (generalized anxiety disorder) 11/06/2017 Assessment & Plan (04/20/2018 2:40 PM SAFETY SITTER): Stable. Will send 30-day supply of abilify and buspirone. rx printed for xanax. F/u with new psych as scheduled 05/11 Hypertension associated with diabetes 11/06/2017 Assessment & Plan (09/18/2018 2:52 PM CDT): BP controlled. Will continue current lisinopril and print orders for fasting labs. UTD on eye exam Please obtain yearly: 1. Hemoglobin A1C and Fasting Lipid Profile 2. Dilated Eye Exam 3. Monofilament Foot Exam 4. Microalbumin Urine Collection If you notice vision changes or non-healing wounds, please contact the office. Please check your feet daily. If your blood sugar is >400 or <50, please contact the office. Assessment & Plan (04/20/2018 2:39 PM SAFETY SITTER): Controlled. Continue lisinopril. Recommend following a diet rich in vegetables, legumes, nuts, fruits, lean meat (poultry), and fish. Limit sodium to less than 2 grams per day. Limit sweets and sugar-sweetened beverages. Avoid tobacco and limit alcohol. Aim for 30 minutes of moderate aerobic activity 5 days per week, and attempt to achieve/maintain a healthy weight. Pulmonary nodule 11/06/2017 Immunizations Immunization Administration Dates Next Due Influenza, Quadrivalent, Spl it, Preservative Free, Intramuscular 04/20/2018 Influenza, Unspecified 08/14/2017(Deferred: Amy ent Refused) Surgical History Surgery Date Site/Laterality Comments KNEE ARTHROSCOPY Arthroscopy knee KNEE ARTHROCENTESIS Arthrocentesis of the left knee joint OTHER SURGICAL HISTORY Arthrocentesis of the left knee APPENDECTOMY THYROIDECTOMY, PARTIAL Left Medical History Medical History Date Comments Depression Depression Anxiety Thyroid nodule Family History Medical History Relation Name Comments Cancer Other 1 Family history of Cancer -; Coronary artery disease Other 2 Fami ly history of Coronary artery disease; Diabetes type II Other 3 Family hist ory of Diabetes -Type 2; Hypertension Other 4 Family history of Hypertension; Stroke Other 5 Family history of Stroke; Relation Name Status Comments Other 1 Other 2 Other 3 Other 4 Other 5 Social History Tobacco Use Types Packs/Day Years Used Date Smoking Tobacco: Every Day Smokeless Tobacco: Current Alcohol Use Standard Drinks/Week Comments Yes 0 (1 standard drink = 0.6 oz pur e alcohol) PHQ-2 Answer Date Recorded PHQ-2 Score 0 02/05/2019 Sex and Gender Information Value Date Recorded Sex Assigned at Not on file Legal Sex Male 6:54 PM SAFETY SITTER Gender Identity Not on file Sexual Orientation Not on file Obstetrics History Last Filed Vital Signs Vital Sign Reading Time Taken Comments Blood Pressure 120/80 01/11/2019 12:55 PM CDT Pulse 77 08/14/2018 11:00 AM SAFETY SITTER Temperature - - Respiratory Rate - - Oxygen Saturation 98% 09/18/2018 1:28 PM CDT Inhaled Oxygen Concentration - - Weight 110.2 kg (243 lb) 01/11/2019 12:55 PM CDT Height 190.5 cm (6' 3) 01/11/2019 12:55 PM CDT Body Mass Index 30.37 01/11/2019 12:55 PM CDT Plan of Treatment Not on file Insurance AETNA [facility] HMO [facility] AETNA [place]OV[employer] HMO/POS [facility] Care Teams Beam Carrier Hauler Pusher Relationship Specialty Start Date End Date Anne-Marie Del Rio, JAQUELINE [address] [place] [address] PCP - General Family Medicine 10/24/17
--- OUTSIDE RECORDS SUMMARY | 2025-03-09 13:50 | XMS_ITS | Clinical Summary ---
Author Organization [facility] Address [address] [place] [address] Care Team Providers Care Soubrette Name Role Phone Usha Omer PA-C Primary Care Provider [phone] Social History Tobacco Use Types Packs/Day Years Used Date Smoking Tobacco: Smoker, Current Status Unknown Sex and Gender Information Value Date Recorded Sex Assigned at Not on file Legal Sex Male 6:43 PM CDT Gender Identity Not on file Sexual Orientation Not on file Last Filed Vital Signs Vital Sign Reading Time Taken Comments Blood Pressure 148/100 03/31/2001 1:08 PM CDT Pulse 80 03/31/2001 1:07 PM CDT Temperature - - Respiratory Rate - - Oxygen Saturation - - Inhaled Oxygen Concentration - - Weight 109.8 kg (242 lb) 03/31/2001 1:07 PM CDT Height 188 cm (6' 2) 03/31/2001 1:07 PM CDT Body Mass Index 31.07 03/31/2001 1:07 PM CDT Plan of Treatment Health Maintenance Due Date Last Done Comments Colorectal Cancer Screening Colonoscopy (10 Years) 1960 Annual Physical 09/18/1963 Hepatitis C 1978 Pneumococcal Vaccine: 50+ Years (2 of 2 - PCV) 02/22/2022 02/22/2021 COVID-19 Vaccine (3 - 2024-2 6 season) 2025 04/25/2021, 03/14/2021 DTaP, Tdap and Td Vaccines ( 2 - Td or Tdap) 05/12/2032 05/12/2022 RSV Immunization or 60+ Years (1 - 1-dose 75+ series) 09/18/2035 Zoster Vaccines Completed 05/12/2022, 02/22/2021 Meningococcal B Vaccine Aged Out No l onger eligible based on patient's age to complete this topic Meningococcal Vaccine Aged Out No lorraine lurdes eligible based on patient's age to complete this topic RSV Immunizations Under 20 Months Aged Out No longer eligible b ased on patient's age to complete this topic Insurance [employer] Care Teams Soubrette Relationship Specialty Start Date End Date Usha Omer PA-C [address] [place] [address] PCP - General DRAPERY SEAMSTRESS 11/03/23
--- OUTSIDE RECORDS SUMMARY | 2025-03-09 13:50 | XMS_ITS | Data Portability ---
Author Organization [facility], [address] [facility] ([place]) Address [address] [place] [address] Care Team Providers Care Mechanic And Welder Name Role Phone VALERIE HIGGINS Primary Care Provider Assessment Encounter Date Assessment Date Assessment LastModified by Organization Details LastModified Time 07/08/2024 07/08/2024 Jesus comes in today for postoperative check. He is a 63-year-old type II diabetic, poorly controlled. He smokes 2 packs of cigarettes daily. Last week, Dr. Roberson did a carpal and cubital tunnel release on him. He reports increased pain and redness to the elbow incision site over the last 24 hours. He does describe some malaise and reports being feverish, but denies any specific elevated temperatures. On my examination of his right elbow today, he is diffuse erythema extending along the elbow into the forearm. This is nonblanching. He has discomfort with motion of the elbow and forearm today. He is able to move his fingers. He has normal intrinsic musculature neurovascular function of the right hand. The incision along the elbow does have an opening along the proximalmost aspect measuring approximately 15 mm at its greatest diameter. There is coagulated blood coming from the opening, but no active purulent drainage today. Mr. Woods is dealing with some cellulitis. I recommended we place him on antibiotics mediately. We placed him on Augmentin 875 twice daily for the next 7 days. He will follow-up with Dr. Roberson as scheduled on Friday for reevaluation. I instructed him to contact us tomorrow if symptoms worsen or change drastically, or go to the emergency room over the weekend if he notices any increase in fevers, chills, pain, or drainage around the incision. We did debride his elbow incision today and placed a sterile dressing on it. He was very understanding and agreeable. [email or web address] Not available 07/08/2024 18:02:33 07/12/2024 07/12/2024 SUBJECTIVE: Mr. Woods returns today. He has had some redness in both his right elbow and right wrist. We are going to take his stitches out of his right wrist today and continue with his Augmentin another week. I will see him back in another week. REVIEW OF SYSTEMS: CONST: No complaints of significant weight changes, fevers or chills. ENT: No complaints of neck pain. RESP: No complaints of pleuritic pain or shortness of breath. CV: No complaints of chest pain. GI: No complaints of abdominal pain, nausea, vomiting, diarrhea, constipation. MSK: No complaints of leg pain. SKIN: No complaints of itching, rashes or skin lesions. PSYCH: No irritability. NEURO: No neuropathic pain or weakness. H/L/IMM: No complaints of excessive bruising or bleeding. Reviewed past medical history, surgical history, family history, social history. No changes except as noted. PHYSICAL EXAMINATION: CONST: Patient is communicative, alert and oriented. EYES: No icterus or redness. RESP: Breathing appears normal, unlabored. GI: Abdomen nondistended. SKIN: No cyanosis. Warm and dry. No jaundice. PSYCH: Stable mood and affect. NEURO: No speech difficulty. Normal gait. Reviewed recent diagnostic tests, lab work, and imaging. These were reviewed with the patient. There is no streaking. There is no cellulitis. It looks like a fairly superficial stitch abscess. IMPRESSION/PLAN: He already sees improvement in his hand in terms of numbness and tingling. It moves very well. This we need to make sure is a speed bump for him, not a roadblock. lmp [email or web address] Not available 07/12/2024 17:42:58 07/19/2024 07/19/2024 SUBJECTIVE: Jesus Woods returns today for an incision check. REVIEW OF SYSTEMS: CONST: No complaints of significant weight changes, fevers or chills. ENT: No complaints of neck pain. RESP: No complaints of pleuritic pain or shortness of breath. CV: No complaints of chest pain. GI: No complaints of abdominal pain, nausea, vomiting, diarrhea, constipation. MSK: No complaints of leg pain. SKIN: No complaints of itching, rashes or skin lesions. PSYCH: No irritability. NEURO: No neuropathic pain or weakness. H/L/IMM: No complaints of excessive bruising or bleeding. Reviewed past medical history, surgical history, family history, social history. No changes except as noted. PHYSICAL EXAMINATION: CONST: Patient is communicative, alert and oriented. EYES: No icterus or redness. RESP: Breathing appears normal, unlabored. GI: Abdomen nondistended. SKIN: No cyanosis. Warm and dry. No jaundice. PSYCH: Stable mood and affect. NEURO: No speech difficulty. Normal gait. Reviewed recent diagnostic tests, lab work, and imaging. These were reviewed with the patient. His incisions no longer look infected. The skin is healed up. All of his numbness and tingling has been resolved. IMPRESSION/PLAN: He looks great. We are going to see him back in 2 months to make sure he has had a satisfactory recovery. lmp [email or web address] Not available 07/21/2024 07:49:17 09/20/2024 09/20/2024 SUBJECTIVE: Mr. Woods returns today. In the past couple of weeks he started noticing his hand is getting better. His numbness and tingling is going down. His strength is improving. PHYSICAL EXAMINATION: CONST: Patient is communicative, alert and oriented. EYES: No icterus or redness. RESP: Breathing appears normal, unlabored. GI: Abdomen nondistended. SKIN: No cyanosis. Warm and dry. No jaundice. PSYCH: Stable mood and affect. NEURO: No speech difficulty. Normal gait. Reviewed recent diagnostic tests, lab work, and imaging. These were reviewed with the patient. Today he has normal 2-point discrimination in all of his fingertips in the right hand. He has a Tinel s that extends down the mid-forearm and occasionally down to his wrist area, so his ulnar nerve is improving. He has normal intrinsic and thenar musculature. IMPRESSION/PLAN: I think he looks great. He is very happy with his results thus far. I told him this will continue to improve from here. He will see us back here on an as-needed basis. His 2-point is intact and his thenar musculature and pinch strength is intact. [email or web address] Not available 09/20/2024 20:17:45 Plan of Treatment Reminders Order Date Submit Date Provider Last Modified By Organization Details Last Modified Time Details Appointments None recorded. Lab None recorded. Referral None recorded. Procedures None recorded. Surgeries None recorded. Imaging None recorded. Medication Orders amoxicillin 875 mg-potassiu m clavulanate 125 mg tablet 2024 025 [email or web address] [facility] [place], [address], 5 08:19:37 Patient TargetsNo targets recorded. Patient InstructionsNo instructions recorded. Reason for Referral None Reported. 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 4 14:55:58 Carpal tunnel syndrome of right wrist 4869403649789 08 Active [address] [facility] 4 12:30:31 Entrapment of right ulnar nerve at elbow 7865214032 [facility] 15:51:10 Problem Notes None recorded. Procedures Surgical History Date Name Laterality Status Provider Name and Address Organization Details Recorded Time 07/01/19 25 neuroplasty and transposition of ulnar nerve at elbow completed Keke Carbone [facility] 07/02/2024 10:24:43 07/01/19 25 neuroplasty and transposition of median nerve at carpal tunnel completed Ivelisse Franco [facility] 07/16/2024 12:20:18 Imaging Results None recorded. Procedure Notes None recorded. Medical Equipment None Reported. Allergies Allergen ID Allergen Name Allergen Category Reaction Reaction Severity Criticality Documentation Date Start Date Code Code System Note Provider Name and Address Organization Details Recorded Time 262026 ciproflox acin hydrochlo ride medicatio n Not available Not available Not available 07/14/20232007 32629 RxNorm Not Available [facility] 4 23:06:03 596374 carisopro dol medicatio n Not available Not available Not available 07/14/20232007 2101 RxNorm Not Available [facility] 4 23:06:03 308200 Acetamino phen / Propoxyph eileen medicatio n Not available Not available Not available 07/14/20232013 27219 RxNorm Not Available [facility] 4 23:06:03 Medications Name Sig Start Date Stop Date Status Note LastModified by Organization Details LastModified Time doxycycline hyclate 100 mg capsule TAKE 1 CAPSULE BY MOUTH EVERY 12 HOURS UNTIL GONE 04/12 completed Not Available Not Available Not Available azithromyci n 250 mg tablet 04/12 completed Not Available Not Available Not Available lisinopril 20 mg tablet TAKE 1 TABLET BY MOUTH ONCE DAILY AT BEDTIME active Not Available Not Available No t Available ropinirole 3 mg tablet TAKE 1 TABLET BY MOUTH EVERY DAY AT BEDTIME active Not Available Not Available No t Available hydrocodone 10 mg-acetamin ophen 325 mg tablet active Not Available Not Available No t Available tramadol 50 mg tablet active Not Available Not Available No t Available pantoprazol e 40 mg tablet,blake yed release TAKE 1 TABLET BY MOUTH TWICE DAILY active Not Available Not Available No t Available oseltamivir 75 mg capsule TAKE 1 CAPSULE BY MOUTH EVERY 12 HOURS FOR 5 DAYS active Not Available Not Available No t Available dexamethaso ne sodium phosphate 4 mg/mL injection solution INJECT 1 ML PER IONTOPHOS IS SESSION (TWICE WEEKLY) active Not Available Not Available No t Available amoxicillin 875 mg-potassiu m clavulanate 125 mg tablet Take 1 tablet every 12 hours by oral route for 7 days. 2024 active Not Available Not Available Not Avai lable duloxetine 30 mg capsule,del ayed release TAKE 1 CAPSULE BY MOUTH ONCE DAILY WITH 60 MG CAPSULE active Not Available Not Available No t Available duloxetine 60 mg capsule,del ayed release TAKE 1 CAPSULE BY MOUTH ONCE DAILY active Not Available Not Available No t Available pregabalin 75 mg capsule TAKE 1 CAPSULE BY MOUTH TWICE DAILY active Not Available Not Available No t Available Januvia 100 mg tablet TAKE 1 TABLET BY MOUTH ONCE DAILY active Not Available Not Available No t Available Farxiga 10 mg tablet TAKE 1 TABLET BY MOUTH ONCE DAILY AT BEDTIME active Not Available Not Available No t Available Tresiba FlexTouch U-100 insulin 100 unit/mL (3 mL) subcutaneou s pen INJECT 52 UNITS SUBCUTANE OUSLY ONCE DAILY AT BEDTIME active Not Available Not Available No t Available Dexcom G7 Sawmill Manager FOR CGM DIRECTED active Not Available Not Available No t Available Dexcom G7 Sensor device FOR CONTINUOU S GLUCOSE MONITORIN G DIRECTED active Not Available Not Available No t Available Zituvio 100 mg tablet TAKE 1 BY MOUTH ONCE DAILY active Not Available Not Available No t Available Vitals None Recorded Social History Question Answer Notes LastModified by Organizat ion Details LastModified Time Tobacco Smoking Status Current Every Day Smoker Marjorie Perez [facility] 03/22/2024 14:10:48 How Many Packs Per Day (PPD)? 2 [email or web address] Information not available 03/22/2024 Sex: Male Functional Status None recorded. Mental Status None recorded. Family History Nothing Reported. Medical History No medical history recorded. Immunizations Vaccine Type Date Status Note Provider Nam e and Address Organization Details Recorded Time [facility] 14[facility]48:06 zoster recombinant 2 completed [facility] 04/12/2024 14:48:06 COVID-19, mRNA, LNP-S, PF, 100 mcg/0.5mL dose or 50 mcg/0.25mL dose [address] [facility] 04/12/2024 14:48:06 COVID-19, mRNA, LNP-S, PF, 100 mcg/0.5mL dose or 50 mcg/0.25mL dose [address] [facility] 04/12/2024 14:48:06 pneumococcal polysaccharide PPV23 1 [facility] 14:48:06 Tdap 2 completed Keke Carbone null, [facility] 04/12/2024 14:48:06 Influenza, split virus, trivalent, preservative 3 completed Keke Carbone null, [facility] 04/12/2024 14:48:06 Influenza, split virus, trivalent, preservative 4 completed Keke Carbone null, [facility] 04/12/2024 14:48:06 Influenza, split virus, trivalent, preservative 3 completed Keke Carbone null, [facility] 04/12/2024 14:48:06 Influenza, split virus, quadrivalent, PF 5 [facility] 14:48:06 Influenza, split virus, quadrivalent, PF 8 completed Keke Carbone null, [facility] 04/12/2024 14:48:06 Influenza, split virus, quadrivalent, PF 2 completed [facility] 14:48:06 Past Encounters Encounter ID Performer Location Encounter Start Date Encounter Closed Date Diagnosis/Indication Diagnosis SNOMED-CT Code Diagnosis ICD10 Code Diagnosis IMO Codes Diagnosis Note [id number] Josue Hoff PA-C [address] [facility] [address] [place] [address] 03/22/2024 14:00:28 03/22/2024 15:13:52 Neuropathy of upper limb 461752451 G56.90 [id number] Earl Roberson MD [address] [facility] [address], [place] [address] 04/12/2024 14:44:46 04/12/2024 15:15:33 Neuropathy of upper limb 434390912 G56.90 [id number] Earl Roberson MD [facility] ([place]) [address] [place] [address] 2nd [place] [address] 07/01/2024 06:10:08 07/02/2024 18:34:04 [id number] Alex Sheikh MD [facility] ([place]) [address] [place] [address], [place] [address] 07/01/2024 06:10:06 07/07/2024 13:04:07 [id number] Josue Hoff PA-C [address] [facility] ([place]) [address] [place] [address],[address] [place] [address] 07/08/2024 14:17:35 07/09/2024 08:13:41 Carpal tunnel syndrome of right wrist [id number] 75233 G56.01 380280 Neuropathy of upper limb 121720210 G56.90 [id number] Earl Roberson MD [address] [facility] [address] [place] [address] 07/12/2024 14:13:50 07/12/2024 15:43:54 Carpal tunnel syndrome of right wrist 8573697179 39152 G56.01 [id number] Earl Roberson MD [facility] [place] [address] [place] [address] 07/19/2024 16:27:45 07/20/2024 18:32:30 Neuropathy of upper limb 240950901 G56.90 Carpal durga kelly syndrome of right wrist 2294856619 33480 G56.01 [id number] Earl Roberson MD [facility] [address] [place] [address] 09/20/2024 15:47:08 09/21/2024 18:24:25 Carpal tunnel syndrome of right wrist 0212408013 96474 G56.01 718852 Entrapment of right ulnar nerve at elbow 6228908719 G56.21 [id number] Health Concerns Section Related Observation LastModified by Organization Detai ls LastModified Time None Recorded Concern Status LastModified by Organization Details LastModified Time None Recorded Advance Directives Directive None Recorded Payers Insurance Date Sequence Insurance Name Policy Number Policy Herring Covered Member ID Herring Member ID Guarantor Name 03/08/2025 1 [employer] [id number] Jesus Woods [id number] Jesus Woods 03/09/2025 1 [employer] - [facility] [employer] (POS) [id number] Jesus Woods [id number] Jesus Woods Notes Date Note Type Note Provider Name and Address Organization Details Recorded Time 5 text/html The history and physical dated 06/28/[address] Higgins's ofc has been reviewed, the patient has been examined and no change has occurred in the patient s condition since the history and physical was completed. Isaias Roberson MD [facility] [address], [address], [facility] 07/05/2024 16:51:21 5 text/html [facility] PRE-ANESTHETIC EVALUATIONReported by PatientReason for VisitFor reason for visit, patient reportsproposed procedure: right carpal tunnel release & ulnar nerve decompression,surgeon: andres, andpreop diagnosis: carpal tunnel syndrome, right upper limb.Review of SystemsFor general, patient reportsexercise tolerance moderate,denies sob, black, pnd, anddenies chest pain or chest tightness. For cardiac, patient reportsno hx of cadandhypertension. For pulmonary, patient reports__ copd __ __ __,current every day smoker,smoking hx, 2 ppd 40 years, andobstructive sleep apnea with cpap at hs. For endo, patient reportsniddm. For gi, patient reportsgerd __. For musculoskeletal, patient reportsrheumatoid arthritis.PSH-Complicat ion/FM HXFor prior anesthetic complication, patient reportsno history of anesthesia complications. For family anesthetic hx, patient reportsno history of anesthesia complications.Physical ExamFor physical exam: airway, patient reportsmp ii. For teeth, patient reportsdentures upper. For neck, patient reportsfull range of motion. For cardiovascular, patient reportsregular rate and rhythm. For respiratory, patient reportsdimished breath sounds bilaterally, but clear. For gastrointestinal, patient reportsnpo status >6 hrs solids, >2 hrs clear liquids. For vital signs, patient reportsvital signs reviewed. please refer to nursing preop note for values.Assessment and PlanFor assessment, patient reportsasa ps: iii. For plan, patient reportsmac.DiscussionFo r discussion, patient reportsi have discussed with the patient the anesthetic plan, alternatives, pertinent risks, and complications; including but not limited to ponv, dental injury, sore throat, mi, stroke, etc. all questions were answered. patient verbalize(s) understanding and agree(s) to proceed.. Alex Sheikh MD [address] [facility], [place], [address], [facility] 07/01/2024 07:13:54
--- OUTSIDE RECORDS SUMMARY | 2025-03-09 13:50 | XMS_ITS | Clinical Summary ---
Author Organization [facility] Address [address] [place] [address] Care Team Providers Care Helper Electrical Name Role Phone Unavailable Primary Care Provider Unavailabl e Source Comments [facility],non-owned Affiliates and Associated Physician Practices is amultiple site organization consisting of ambulatory clinics and hospital sitesin [place], [place], [place] and [place]. This disclosure is being madepursuant to the Care Everywhere program and may not contain all information available regarding this patient. Last updated 18.[facility] Allergies Active Allergy Reactions Criticality Noted Date Comments Ciprofloxacin Other High 06/24/2016 Braxton hirma syndrome Medications * Be aware that medications may not be up to date on this document. Alwaysverify current medications with the patient. FARXIGA 10 MG tablet Take 10 mg by mouth once daily 2 Active DEXILANT 60 MG capsule 1 Active DULoxetine (CYMBALTA) 60 MG capsule Take 60 mg by mouth once daily 2 Active lisinopril (PRINIVIL; ZESTRIL) 20 MG tablet Take 20 mg by mouth once daily 2 Active pantoprazole EC (PROTONIX) 40 MG tablet Take 40 mg by mouth 2 times daily 2 Active XIFAXAN 550 MG tablet TAKE 1 TABLET BY MOUTH THREE TIMES DAILY FOR 14 DAYS 2 Active rOPINIRole (REQUIP) 3 MG tablet Take 3 mg by mouth at bedtime 2 Active OZEMPIC, 1 MG/DOSE, 4 MG/3ML SOPN INJECT 1MG (0.75 ML) SUBCUTANEOUSLY EVERY WEEK FOR 3 MONTHS 2 Active traZODone (DESYREL) 100 MG tablet 1 Active diphenoxylate- atropine (LOMOTIL) 2.5-0.025 MG tablet Take 1 (one) tablet by mouth at bedtime 30 tablet 2 Active Additional Information Patient not taking.Reported on 02/25/2022 cholestyramine (QUESTRAN) 4 g packet Take 1 (one) packet by mouth once daily 60 Each 2 Active Additional Information Patient not taking.Reported on 02/25/2022 promethazine (PHENERGAN) 25 MG tablet Take 1 (one) tablet by mouth every 6 hours as needed for Nausea/Vomiting 30 tablet 2 2 Active Insulin Glargine (LANTUS SOLOSTAR SC) Inject 10 Units subcutaneously once daily Active ondansetron (Zofran) 4 MG tablet Take 1 (one) tablet by mouth every 6 hours as needed for Nausea/Vomiting 90 tablet 2 2 Active Active Problems Problem Noted Date Diagnosed Date Family history of hypertension 09/03/2021 BMI 30.0-30.9,adult 01/11/2019 Overview (09/03/2021): Last Assessment & Plan: Weight today is 243 with BMI 30.37. [...] constipation, diabetes, diverticulosis, some cancers. (Source: HealthyPeople.gov) Class 1 obesity due to exces s calories with serious comorbidity and body mass index (BMI) of 30.0 to 30.9 in adult 01/11/2019 Overview (09/03/2021): Last Assessment & Plan: Weight today is 243 lb with a BMI of 30.37. Target 10 % of current weight loss. Carroll's esophagus without dysplasia 01/11/2019 Overview (09/03/2021): Last Assessment & Plan: Patient reports history of Carroll's esophagus with last upper endoscopy completed about 3 years ago. He does not recall physician we do not have records. We will schedule an Upper Endoscopy (EGD). Upper Endoscopy procedure risks, benefits and alternatives have been discussed with the patient. The differential diagnosis includes but is not limited to duodenal ulcer, gastric ulcer, gastritis, esophageal ulcerations, stomach polyps, neoplasms. Nausea and vomiting 01/11/2019 Overview (09/03/2021): Last Assessment & Plan: Ongoing nausea and vomiting. Patient has been taking pantoprazole. Please stop taking pantoprazole. Start taking Dexilant 60 mg once a day 30-60 minutes before dinner on empty stomach. In the morning for breakthrough symptoms she can take Zantac (Ranitidine) 150 mg. Will order blood work to rule out gluten allergy. You do not have to avoid gluten at this time. Tobacco use 01/11/2019 Overview (09/03/2021): Last Assessment & Plan: Tobacco cessation advised. Gastroesophageal reflux disease 09/18/2018 Overview (09/03/2021): Last Assessment & Plan: The goal of acid reflux (heartburn or [...] ulcer, gastritis, esophageal ulcerations, stomach polyps, neoplasms. Added automatically from request for surgery [id number] Peripheral vascular disease 09/18/2018 PAULINO (obstructive sleep apnea) 09/18/2018 Overview (09/03/2021): Last Assessment & Plan: Continue cpap Rheumatoid arthritis 09/18/2018 Shortness of breath 09/18/2018 Tobacco dependence syndrome 09/18/2018 Chest pain 09/10/2018 Diabetes mellitus, type 2 04/17/2018 Overview (09/03/2021): Last Assessment & Plan: Continue farxiga and will assess A1c today. [...] <50, please contact the office. Gout 01/16/2018 Overview (09/03/2021): Last Assessment & Plan: Pt cannot recall if he is taking uloric or allopurinol. Advised of recent black box warning assoc with uloric. He will double check his meds at home and if he is on this, will stop Depression 11/06/2017 Overview (09/03/2021): Last Assessment & Plan: List of psychiatrists given, including Cristina bangura. Pt to call around for most convenient location/time, and notify us. Will place referral at that time if needed. If symptoms worsen and becomes suicidal, recommend ER SANDI (generalized anxiety disorder) 11/06/2017 Overview (09/03/2021): Last Assessment & Plan: Stable. Will send 30-day supply of abilify and buspirone. rx printed for xanax. F/u with new psych as scheduled 05/11 Hypertension associated with diabetes 11/06/2017 Overview (09/03/2021): Last Assessment & Plan: BP controlled. Will continue current lisinopril and [...] >400 or <50, please contact the office. Pulmonary nodule 11/06/2017 Immunizations Immunization Administration Dates Next Due INFLUENZA VACCINE, QUADR. 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 Gender Identity Not on file Sexual Orientation Not on file Last Filed Vital Signs Vital Sign Reading Time Taken Comments Blood Pressure 120/92 02/25/2022 1:16 PM CDT Pulse 107 02/25/2022 1:16 PM CDT Temperature 36.2 C (97.1 F) 02/25/2022 1:16 PM CDT Respiratory Rate 12 10/03/2021 4:15 PM CDT Oxygen Saturation 98% 02/25/2022 1:16 PM CDT Inhaled Oxygen Concentration - - Weight 113.4 kg (250 lb) 02/25/2022 1:16 PM CDT Height 190.5 cm (6' 3) 10/03/2021 1:19 PM CDT Body Mass Index 31.25 10/03/2021 1:19 PM CDT Plan of Treatment Health Maintenance Due Date Last Done Comments COLOGUARD (AGES 45-75) - COLON CA SCREENING 1960 COLON MONITORING 1960 COLONOSCOPY - COLON CA SCREENING 1960 CT COLONOGRAPHY - COLON CA SCREENING 1960 Colorectal Cancer Screening 1960 FIT - COLON CA SCREENING 1960 FLEX SIG - COLON CA SCREENING 1960 HIV SCREENING 09/18/1975 HEPATITIS C SCREENING 09/13/1978 DTAP/TDAP/TD VACCINES (1 - Tdap) 09/18/1979 PNEUMOCOCCAL VACCINE 50+ (1 of 2 - PCV) 09/18/1979 DIABETES-STATIN 2000 LUNG CANCER SCREENING 2010 ZOSTER VACCINE (1 of 2) 2010 Respiratory Syncytial Virus (RSV) Vaccine Pt: or over 60 yrs (1 - Risk 60-74 years 1-dose series) 2020 DIABETES RETINOPATHY SCREENING 09/03/2021 DIABETES-FOOT EXAM WITH MONOFILAMENT 09/03/2021 DIABETES-HGB A1C 09/03/2021 04/20/2018 DIABETES-SERUM CREATININE 09/14/20222021, 09/05/2021, 04/13/2018, Additional history exists DEPRESSION SCREENING 06/16/2024 DIABETES - URINE PROTEIN SCREENING 06/16/2024 COVID-19 VACCINE ( - season) 2025 INFLUENZA VACCINE (#1) 2025 04/20/2018 HEPATITIS B VACCINE Aged Out No longe r eligible based on patient's age to complete this topic HIB VACCINE Aged Out No longer eligi ble based on patient's age to complete this topic HPV VACCINE Aged Out No longer eligi ble based on patient's age to complete this topic MENINGOCOCCAL (Group B) VACCINE SHARED DECISION-MAKING Aged Out No longer eligible based on patient's age to complete this topic MENINGOCOCCAL GROUPS A/C/Y/W VACCINE Aged Out No longer eligible based on patient's age to complete this topic Goals Goal Patient Goal Type Associated Problems Recent Progress Patient-Stated? Author Medication Management General No Lynsey No, RN Note: Expected end date: ongoing Interventions: Take all medications as prescribed Let your doctor know right away about any changes in your medications Make sure to request a refill of your medication at least one week prior to your last dose Procedures Procedure Name Priority Date/Time Associated Diagnosis Comments COMP MET PANEL (EXTERNAL RESULT ENTRY) Routine 09/14/2021 from Last 3 Months or Most Recently Relevant to Health Maintenance Results * COMP MET PANEL (EXTERNAL RESULT ENTRY) (09/14/2021) Glucose (EXTERNAL) 116 mg/dL Sodium (EXTERNAL RESULT) 142 mmol/L Potassium (EXTERNAL RESULT) 4.7 mmol/L Chloride (EXTERNAL RESULT) 103 mmol/L CO2 (EXTERNAL) 27 mmol/L Calcium (EXTERNAL RESULT) 9.6 mg/dL Anion Gap (EXTERNAL RESULT) BUN (EXTERNAL RESULT) 21 mg/dL Creatinine (EXTERNAL RESULT) 1.16 mg/dl Alkaline Phosphatase (EXTERNAL RESULT) 79 U/L ALT (EXTERNAL RESULT) 16 U/L AST (EXTERNAL RESULT) 15 U/L Protein Total (EXTERNAL RESULT) 7.0 gm/dL Albumin (EXTERNAL RESULT) 4.7 gm/dL Bilirubin Total (EXTERNAL RESULT) 0.7 mg/dL eGFR MDRD (EXTERNAL RESULT) 68 mL/min/1.7 3m2 eGFR (EXTERNAL) 79 mL/min/1.7 3m2 Blood BLOOD SPECIMEN / Unknown 09/14/2021 Historical Provider LAB - CHEMISTRY ORDERABLE S Final Result from Last 3 Months or Most Recently Relevant to Health Maintenance Insurance [employer] AETNA SELF PAY NO INSURANCE Member Subscriber Plan / Payer (Ef fective for All Dates) Name:Jp Woods Member ID:Not on file Relation to Subscriber:Not on file Name:JP WOODS Subscriber ID:Not on file Address: [address] [place] [phone] Payer ID:Not on file Group ID:Not on file Type:Self Pay Address: [place], [place] SELF PAY NO INSURANCE Member Subscriber Plan / Payer (Ef fective for All Dates) Name:Jp Woods Member ID:Not on file Relation to Subscriber:Not on file Name:JP WOODS Subscriber ID:Not on file Address: [address] [place] [phone] Payer ID:Not on file Group ID:Not on file Type:Self Pay Address: [place], [place] * Guarantor: JP WOODS Account Type Relation to Patient Date of Phone Billing Address Personal/Family [address] [place] [phone] SELF PAY NO INSURANCE Member Subscriber Plan / Payer (Ef fective for All Dates) Name:Jp Woods Member ID:Not on file Relation to Subscriber:Not on file Name:JP WOODS Subscriber ID:Not on file Address: [address] [place] [phone] Payer ID:Not on file Group ID:Not on file Type:Self Pay Address: [place], [place] * Guarantor: JP WOODS Account Type Relation to Patient Date of Phone Billing Address Personal/Family [address] [place] [phone] SELF PAY NO INSURANCE Member Subscriber Plan / Payer (Ef fective for All Dates) Name:Jp Woods Member ID:Not on file Relation to Subscriber:Not on file Name:JP WOODS Subscriber ID:Not on file Address: [address] [place] [phone] Payer ID:Not on file Group ID:Not on file Type:Self Pay Address: [place], [place] * Guarantor: JP WOODS Account Type Relation to Patient Date of Phone Billing Address Personal/Family [address] [place] [phone] SELF PAY NO INSURANCE Member Subscriber Plan / Payer (Ef fective for All Dates) Name:Jp Woods Member ID:Not on file Relation to Subscriber:Not on file Name:JP WOODS Subscriber ID:Not on file Address: [address] [place] [phone] Payer ID:Not on file Group ID:Not on file Type:Self Pay Address: [place], [place]
--- OUTSIDE RECORDS SUMMARY | 2025-03-09 13:50 | XMS_ITS | Clinical Summary ---
Author Organization [facility] Address [address] [place] [address] Phone Care Team Providers Care Recycling Specialist Name Role Phone Aris Johnson DO Primary Care Provider [phone] Allergies Active Allergy Reactions Criticality Noted Date Comments Ciprofloxacin Waterman Roosevelt Syndrome High 04/13/20 18 Medications OTHERIndication s:Donta for DM II Provider please include Medication name, dose, route and frequency . Active lisinopril (PRINIVIL) 20 mg tablet Take 20 mg by mouth daily. Active pantoprazole (PROTONIX) 20 mg Tablet, Delayed Release (E.C.) Take 20 mg by mouth daily. Active Social History Tobacco Use Types Packs/Day Years Used Date Smoking Tobacco: Heavy Smoker Cigarettes Smokeless Tobacco: Never Alcohol Use Standard Drinks/Week Comments No 0 (1 standard drink = 0.6 oz pur e alcohol) Sex and Gender Information Value Date Recorded Sex Assigned at Not on file Legal Sex Male 1:07 PM CDT Gender Identity Not on file Sexual Orientation Not on file Last Filed Vital Signs Vital Sign Reading Time Taken Comments Blood Pressure 148/82 04/13/2018 5:28 PM CDT Pulse - - Temperature 37.2 C (98.9 F) 04/13/2018 1:17 PM CDT Respiratory Rate 16 04/13/2018 5:28 PM CDT Oxygen Saturation 99% 04/13/2018 5:28 PM CDT Inhaled Oxygen Concentration - - Weight 104.3 kg (230 lb) 04/13/2018 1:17 PM CDT Height 190.5 cm (6' 3) 04/13/2018 1:17 PM CDT Body Mass Index 28.75 04/13/2018 1:17 PM CDT Plan of Treatment Health Maintenance Due Date Last Done Comments DTAP/TDAP/TD VACCINES (1 - Tdap) 09/18/1979 COLORECTAL SCREENING 2005 Colorectal Cancer Screening 2005 FIT-DNA Q 3 years 2005 FIT/FOBT Q 1 year 2005 Flex Sig/CT Colonography Q 5 years 2005 ZOSTER VACCINE (1 of 2) 2010 INFLUENZA VACCINE (#1) 2025 RSV VACCINE (60+ or ) (1 - 1-dose 75+ series) 09/18/2035 Insurance AETNA CHOICE POS II Care Teams Recycling Specialist Relationship Specialty Start Date End Date Aris Johnson DO [address] [phone] PCP - General Internal Medicine 04/13/18
== END 2025-03-09 13:46 | disposition home or self-care (01) ==
LOC: ANHIMG 13:48
PROVIDERS: PCP Family Medicine
DX: R06.02 Shortness of breath (principal); F17.200 Nicotine dependence, unspecified, uncomplicated; I51.7 Cardiomegaly
CPT/HCPCS: 71046